=== PATIENT | male | born 1955 | race Caucasian/White ===

== ENCOUNTER → 2017-01-17 | Outpatient (CLI) | payer BC ==
--- NOTE | 2017-01-17 11:48 | MR ---
EXAMINATION TYPE: MR cervical spine wo con DATE OF EXAM: 01/17/2017 10:03 AM COMPARISON: NONE HISTORY: Neck pain TECHNIQUE: Multiplanar, multisequence images of the cervical spine were acquired. C2-C3: No evidence for degenerative disc disease. No disc bulge/herniation or protrusion. No Canal stenosis. Foramina are patent bilaterally. C3-C4: Broad-based posterior disc bulge, endplate disc complex causes anterior mass effect on the the gloria sac. Uncovertebral joint hypertrophy, facet arthropathy cause bilateral foraminal encroachment le ft greater than right. C4-C5: Posterior extension of endplate disc complex associated with posterior disc herniation in the central, right paracentral location contacts anterior cervical cord and results in mild to moderate c entral stenosis. Foraminal encroachment is present bilaterally left greater than right. C5-C6: Posterior endplate disc complex is broad-based and contacts the anterior cervical cord and res ults in some mild central canal stenosis. Bilateral foraminal encroachment is present due to uncovert ebral joint hypertrophy facet arthropathy change. C6-C7: Uncovertebral joint hypertrophy and facet arthropathy results in some mild foraminal encroachm ent. Broad-based posterior disc bulge causes anterior mass effect on the thecal sac and possibly exte nsion to contact the anterior cervical cord, no significant spinal stenosis. C7-T1: No evidence for degenerative disc disease. No disc bulge/herniation or protrusion. No Canal stenosis. Foramina are patent bilaterally. Cervical segments are intact. There is normal alignment. Cervical spinal cord is of normal signal. Multilevel spondylosis is present with associated loss of disc height and signal at the intervertebr al levels, endplate discogenic marrow signal change compatible with degenerative disc disease. Cranio vertebral junction relationships are within normal limits. Inflammatory changes noted incidentally i n the maxillary sinus. IMPRESSION: Degenerative disc disease, canal stenosis, multilevel foraminal encroachment. Additional findings abo ve.
== END | disposition home or self-care (01) ==
LOC: RADMRIMAIN 09:30
PROVIDERS: ATTEND Family Medicine
DX: M48.02 Spinal stenosis, cervical region (principal); M46.92 Unspecified inflammatory spondylopathy, cervical region; M50.221 Other cervical disc displacement at C4-C5 level; M47.892 Other spondylosis, cervical region; M50.30 Other cervical disc degeneration, unspecified cervical region
CPT/HCPCS: 72141

== ENCOUNTER → 2017-03-31 | Outpatient (CLI) | payer BC ==
[2017-03-31 19:32] LABS: ALT 34 U/L (21-72); AST 21 U/L (17-59); Alkaline Phosphatase 124 U/L (38-126); Anion Gap 12 mmol/L; Blood Urea Nitrogen 16 mg/dL (9-20); Calcium 9.7 mg/dL (8.4-10.2); Carbon Dioxide 23 mmol/L (22-30); Chloride 105 mmol/L (98-107); Cholesterol 220 mg/dL (<200); Glucose 90 mg/dL (74-99); HDL Cholesterol 44 mg/dL (40-60); Non-African American GFR(MDRD) >60 (>60 ml/min/1.73 sqM); Potassium 4.5 mmol/L (3.5-5.1); Sodium 140 mmol/L (137-145); Total Bilirubin 0.7 mg/dL (0.2-1.3); Total Protein 7.5 g/dL (6.3-8.2); Triglycerides 215 mg/dL (<150)
== END | disposition home or self-care (01) ==
LOC: MMGSC 10:56
PROVIDERS: ATTEND Family Medicine
DX: E78.5 Hyperlipidemia, unspecified (principal); Z12.5 Encounter for screening for malignant neoplasm of prostate
CPT/HCPCS: 80061; 80053; 36415; G0103

== ENCOUNTER → 2017-04-14 | Outpatient (CLI) | payer BC ==
--- NOTE | 2017-04-14 08:06 | CTL ---
EXAMINATION TYPE: CT Low Dose Lung DATE OF EXAM ORDERED: 04/14/2017 HISTORY: . Lung cancer screening CT DLP: 104.[address] CTDI: 2.7 mGy Automated exposure control for dose reduction was used. SCREENING VISIT: First COMPARISON: None TECHNIQUE: Low dose computed tomography scan was performed through the chest at 1 mm thick sections a nd reconstructed images in the coronal plane at [address] DIAGNOSTIC QUALITY: Satisfactory FINDINGS: LUNG NODULES: Present, detailed below: There is a nodule with a size of 3 mm. Nodule Size in Millimeters 3 mm was visualized with Nodule Ty pe: Solid that is Nodule state: Round in nature on image # CT Image slide number 65. LUNGS: COPD: Severity: Mild Fibrosis: Severity: None Lymph nodes: No pathologically enlarged nodes. Other findings: Apical scarring RIGHT PLEURAL SPACE: Effusion: None Calcification: None Thickening: None Pneumothorax: None LEFT PLEURAL SPACE: Effusion: None Calcification: None Thickening: None Pneumothorax: None HEART: Heart Size: Normal Coronary calcification: Mild Pericardial effusion: None OTHER FINDINGS: Upper abdomen: Calcification in the left adrenal gland likely relates to previous hemorrhage Bony thorax: Mild facet arthropathy in the lumbar spine Supraclavicular region: Unremarkable Other: None IMPRESSION: 1. Mild emphysematous change. 2. Solitary, 3 mm pulmonary nodule in the right. FOLLOW UP CT CHEST RECOMMENDATION: [address] LUNG RAD: 2
== END | disposition home or self-care (01) ==
LOC: RADCTMAIN 07:03
PROVIDERS: ATTEND Family Medicine
DX: Z12.2 Encounter for screening for malignant neoplasm of respiratory organs (principal); R91.1 Solitary pulmonary nodule; J43.9 Emphysema, unspecified; Z87.891 Personal history of nicotine dependence

== ENCOUNTER → 2017-10-05 | Outpatient (CLI) | payer BC ==
[2017-10-05 18:59] LABS: Basophils # (A) 0.1 k/uL (0-0.2); Basophils % (A) 1 %; CH 32.2; CHCM 32.5; Eosinophils # (A) 0.5 k/uL (0-0.7); Eosinophils % (A) 6 %; HCT 51.5 % (39.0-53.0); HDW 2.15; Luc % (Auto) 2; Lymphocytes # (A) 2.3 k/uL (1.0-4.8); Lymphocytes % (A) 27 %; MCHC 31.1 g/dL (31.0-37.0); MCV 99.6 fL (80.0-100.0); Mean Platelet Volume 8.9; Monocytes # (A) 0.6 k/uL (0-1.0); Monocytes % (A) 7 %; Neutrophils # (A) 4.8 k/uL (1.3-7.7); Neutrophils % (A) 58 %; RBC 5.17 m/uL (4.30-5.90); RDW 12.6 % (11.5-15.5); WBC 8.4 k/uL (3.8-10.6); WBC (Perox) 7.73
[2017-10-05 19:09] LABS: ALT 40 U/L (21-72); AST 23 U/L (17-59); Alkaline Phosphatase 104 U/L (38-126); Anion Gap 10 mmol/L; Blood Urea Nitrogen 16 mg/dL (9-20); Calcium 9.7 mg/dL (8.4-10.2); Carbon Dioxide 22 mmol/L (22-30); Chloride 108 mmol/L (98-107); Cholesterol 252 mg/dL (<200); Glucose 94 mg/dL (74-99); HDL Cholesterol 45 mg/dL (40-60); Non-African American GFR(MDRD) >60 (>60 ml/min/1.73 sqM); Potassium 4.4 mmol/L (3.5-5.1); Sodium 140 mmol/L (137-145); Total Bilirubin 0.4 mg/dL (0.2-1.3); Total Protein 7.6 g/dL (6.3-8.2)
== END | disposition home or self-care (01) ==
LOC: MMGSC 09:58
PROVIDERS: ATTEND Family Medicine
DX: E78.5 Hyperlipidemia, unspecified (principal); R53.83 Other fatigue
CPT/HCPCS: 36415; 80053; 80061; 82306; 82607; 84439; 84443; 85025

== ENCOUNTER → 2018-01-11 | Outpatient (CLI) | payer BC ==
[2018-01-11 19:35] LABS: ALT 44 U/L (21-72); AST 32 U/L (17-59); Albumin 4.6 g/dL (3.5-5.0); Alkaline Phosphatase 109 U/L (38-126); Anion Gap 13 mmol/L; Blood Urea Nitrogen 17 mg/dL (9-20); Calcium 9.9 mg/dL (8.4-10.2); Carbon Dioxide 26 mmol/L (22-30); Chloride 104 mmol/L (98-107); Cholesterol 215 mg/dL (<200); Glucose 97 mg/dL (74-99); HDL Cholesterol 44 mg/dL (40-60); LDL Cholesterol,Calculated 139 mg/dL (0-99); Potassium 4.6 mmol/L (3.5-5.1); Sodium 143 mmol/L (137-145); Total Bilirubin 0.7 mg/dL (0.2-1.3); Triglycerides 161 mg/dL (<150)
== END ==
LOC: MMGSC 10:16
PROVIDERS: ATTEND Family Medicine
DX: I10 Essential (primary) hypertension (principal); E55.9 Vitamin D deficiency, unspecified; E78.5 Hyperlipidemia, unspecified
CPT/HCPCS: 36415; 80053; 80061; 82306

== ENCOUNTER → 2018-01-30 | Outpatient (CLI) | payer BC | END | disposition home or self-care (01) | LOC: MMGSC 15:20 | PROVIDERS: ATTEND Family Medicine | DX: R82.99 Other abnormal findings in urine (principal) | CPT/HCPCS: 87086 ==

== ENCOUNTER → 2018-01-30 | Outpatient (CLI) | payer BC ==
[2018-01-30 20:43] LABS: ALT 36 U/L (21-72); AST 28 U/L (17-59); Albumin 4.6 g/dL (3.5-5.0); Alkaline Phosphatase 107 U/L (38-126); Anion Gap 12 mmol/L; Blood Urea Nitrogen 13 mg/dL (9-20); Calcium 10.2 mg/dL (8.4-10.2); Carbon Dioxide 29 mmol/L (22-30); Chloride 103 mmol/L (98-107); Glucose 90 mg/dL (74-99); Potassium 4.7 mmol/L (3.5-5.1); Sodium 144 mmol/L (137-145); Total Bilirubin 0.8 mg/dL (0.2-1.3); Total Protein 7.9 g/dL (6.3-8.2)
[2018-01-30 21:59] LABS: INR 1.1 (<1.2); Prothrombin Time 10.5 sec (9.0-12.0)
[2018-01-30 22:02] LABS: HCT 48.5 % (39.0-53.0); HGB 15.6 gm/dL (13.0-17.5); MCH 31.3 pg (25.0-35.0); MCHC 32.2 g/dL (31.0-37.0); MCV 97.1 fL (80.0-100.0); Mean Platelet Volume 8.5; Platelet Count 278 k/uL (150-450); RBC 4.99 m/uL (4.30-5.90); RDW 12.6 % (11.5-15.5); WBC 7.2 k/uL (3.8-10.6)
== END | disposition home or self-care (01) ==
LOC: MMGSC 15:10
PROVIDERS: ATTEND Orthopaedic Surgery Orthopaedic Surgery of the Spine
DX: M48.02 Spinal stenosis, cervical region (principal)
CPT/HCPCS: 36415; 80053; 85027; 85610; 85730

== ENCOUNTER → 2018-02-01 | Outpatient (CLI) | payer BC ==
--- NOTE | 2018-02-01 15:48 | CONS ---
CONSULTATION DATE OF SERVICE: 02/01/2018 The 62-year-old gentleman who has been evaluated in Sleep Center for possible obstructive sleep apnea-hypopnea syndrome. HISTORY OF PRESENT ILLNESS/SLEEP WAKE EVALUATION: Patient usual sleep schedule on working days is from 7:30 a.m. until 2:30 p.m., on weekends or days off he sleeps from around 8:30 p.m. until 5:00 a.m. No problems with falling asleep, although he has TV set in bedroom. He sleeps on the side position with loud snoring, awakenings from sleep with grinding teeth and nocturia. After sleep the patient wakes up tired. [place] Sleepiness Scale is 9. PAST MEDICAL HISTORY: Positive for hypertension, hyperlipidemia. PAST SURGICAL HISTORY: Left eye cataract surgery, fatty tumor removed from right upper part of the chest. SOCIAL HISTORY: Positive for smoking for about 50 pack years. The patient continued to smoke. Alcohol consumption occasional. REVIEW OF SYSTEMS: Sleepiness during the day. Patient takes naps at 2:00 p.m. FAMILY HISTORY: Hypertension, hyperlipidemia, snoring. PHYSICAL EXAM: GENERAL gentleman without distress. VITAL SIGNS BP 108/76, HR 82, RR 16, height 5 feet 8, weight 197, BMI 29.9, temperature 97.2, oxygen saturation room air 96%. HEENT PERRLA, EOMI, evaluation of oropharynx showed moderately low position of soft palate, wide pillars, short distance between soft palate and posterior pharyngeal wall. Neck 14-3/4 inches in circumference. NECK Supple, no JVD. Thyroid is not palpable. LUNGS Clear to percussion and to auscultation. Good air exchange. No wheezing or rhonchi. HEART S1, S2 regular. No murmurs, gallops, or rubs. ABDOMEN Soft and nontender. Bowel sounds are present. No organomegaly appreciated. EXTREMITIES No clubbing or cyanosis. 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 Cranial nerves 2 to 7 intact. There is no fasciculation or atrophy. noted. No focal deficits observed. IMPRESSION: 1. Snoring and awakenings from sleep with nocturia and grinding teeth, moderately low position of soft palate. The patient takes naps in the middle of the day, obstructive sleep apnea-hypopnea syndrome. 2. Overweight, borderline to obesity; body mass BMI 29.9. 3. Hypertension. 4. Hyperlipidemia. 5. Status post left eye cataract surgery. 6. Status post fatty tumor removed from the right upper part of the chest. 7. Smoking for about 50 pack years. Continues smoking. PLAN: 1. Home sleep apnea test for evaluation of patient breathing during the sleep. 2. Sleep hygiene with regular time in bed for at least 8 hours. 3. No driving if feeling any sleepiness. 4. CPAP treatment if sleep study positive for obstructive sleep apnea-hypopnea syndrome. Thank you very much for this consultation. Sincerely, Jarred Silva MD, PhD, FAASM Diplomat of [place] [employer] [place] [employer] Painting Technician of [facility] [place] MMODL / IJN: [id number] /
== END | disposition home or self-care (01) ==
LOC: SLEEP 14:06
PROVIDERS: ATTEND Internal Medicine
DX: G47.33 Obstructive sleep apnea (adult) (pediatric) (principal); E66.3 Overweight; Z68.29 Body mass index [BMI] 29.0-29.9, adult; I10 Essential (primary) hypertension; F17.200 Nicotine dependence, unspecified, uncomplicated; E78.5 Hyperlipidemia, unspecified; Z98.890 Other specified postprocedural states
CPT/HCPCS: 99211

== ENCOUNTER → 2018-06-27 | Outpatient (CLI) | payer BC ==
--- NOTE | 2018-06-27 09:31 | CTL ---
EXAMINATION TYPE: CT Low Dose Lung DATE OF EXAM ORDERED: 06/27/2018 COMPARISON: 04/14/2017 HISTORY: . Low Dose CT Lung Screening CT DLP: [address] CTDI: 2.07 mGy IV CONTRAST USED: None. SCREENING VISIT: First visit COMPARISON: None. TECHNIQUE: Low dose computed tomography scan was performed through the chest at 1 millimeter thick se ctions and reconstructed images in the coronal plane at [address] DIAGNOSTIC QUALITY: Satisfactory FINDINGS: LUNG NODULES: Stable sub-3 mm pulmonary nodule right upper lobe anteriorly image 67. Stable 2 mm pulm onary nodule left upper lobe at its periphery image 77. LUNGS: COPD: Severity: Mild Fibrosis: Severity:None Lymph nodes: None Other findings: None RIGHT PLEURAL SPACE: Effusion: None Calcification: None Thickening: None Pneumothorax: None LEFT PLEURAL SPACE: Effusion: None Calcification: None Thickening: None Pneumothorax: None HEART: Heart Size: Mildly enlarged Coronary calcification: Mild Pericardial effusion: None OTHER FINDINGS: Upper abdomen: No significant abnormality Bony thorax: Degenerative changes Supraclavicular region: No significant abnormalityOther: No significant abnormalityI IMPRESSION: 1. Emphysematous changes mild in degree. 2. Stable sub-3 mm pulmonary nodules. FOLLOW UP CT CHEST RECOMMENDATION: Follow-up screening in one year CT LUNG RAD: LUNG RAD CATEGORY 2 benign
== END | disposition home or self-care (01) ==
LOC: RADCTMAIN 08:22
PROVIDERS: ATTEND Family Medicine
DX: Z12.2 Encounter for screening for malignant neoplasm of respiratory organs (principal); J43.9 Emphysema, unspecified; R91.8 Other nonspecific abnormal finding of lung field; Z87.891 Personal history of nicotine dependence

== ENCOUNTER → 2018-06-28 | Outpatient (CLI) | payer BC ==
--- NOTE | 2018-06-28 17:28 | PN ---
PROGRESS NOTE DATE OF SERVICE: 06/28/2018 This patient is a 62-year-old gentleman who has been followed in the sleep center for treatment of obstructive sleep apnea-hypopnea syndrome. Recently the patient had a home sleep test which showed mild sleep apnea, and after that the patient was started on treatment with CPAP. The patient is able to use equipment without significant problems every night. He is using a full-face mask. No complaints about mask or machine. He feels slightly better with the machine, but not significantly. At the same time, his blood pressure during monitoring in his primary care physician's office improved during the last visit. At that time he was already on the machine. I checked his CPAP unit. On the automatic regimen, the pressure ranges between 5 and 20, average pressure 7.3 cm of water. Leak is 10 cm of water, which is acceptable. Apnea-hypopnea index is only 1.6, which is within normal range. Usage is 24 out of 30 nights for more than 4 hours. Average usage is 5.8 hours. MEDICATIONS: Medication for cholesterol; patient does not remember at the present moment. PHYSICAL EXAMINATION: GENERAL A pleasant gentleman in no distress. VITAL SIGNS: BP 133/76, HR 79, RR 18, weight 193.4, temperature 97.6, oxygen saturation at room air 95%. HEENT: PERRLA, EOMI. Evaluation of oropharynx showed tongue protrudes midline; low position of soft palate. NECK: Supple. No JVD. Thyroid is not palpable. LUNGS: Clear to percussion and to auscultation. Good air exchange. No wheezing or rhonchi. HEART: S1, S2 regular. No murmurs, gallops or rubs. ABDOMEN: Soft and nontender. Bowel sounds are present. No organomegaly appreciated. EXTREMITIES : No clubbing or cyanosis. SHOE PULLER: Awake, alert, and oriented X3. Cranial nerves 2 to 7 intact. There is no fasciculation or atrophy. noted. No focal deficits observed. IMPRESSION: 1. Obstructive sleep apnea-hypopnea syndrome, under full control with CPAP. Patient demonstrated great compliance with treatment, benefitting from treatment. 2. Hypertension. 3. Hyperlipidemia. PLAN: 1. Continue treatment with automatic PAP with the same regimen. 2. Watching weight. 3. Sleep hygiene with regular time in bed for at least 8 hours. 4. No driving if feeling any sleepiness. Thank you very much for allowing me to participate in the management of your patient. Sincerely, Jarred Silva MD, PhD, FAASM Diplomat of [place] [employer] [employer] Nuclear Plant Technical Advisor of [facility] [place] MICA / ADARSH: [id number] /
== END ==
LOC: SLEEP 16:20
PROVIDERS: ATTEND Internal Medicine
DX: G47.33 Obstructive sleep apnea (adult) (pediatric) (principal); I10 Essential (primary) hypertension; E78.5 Hyperlipidemia, unspecified; Z99.89 Dependence on other enabling machines and devices

== ENCOUNTER → 2019-07-03 | Outpatient (CLI) | payer BC ==
--- NOTE | 2019-07-03 09:01 | CTL ---
EXAMINATION TYPE: CT Low Dose Lung DATE OF EXAM ORDERED: 07/03/2019 HISTORY: 63-year-old male Personal history of tobacco use. Lung cancer screening CT DLP: [address] CTDI: 2.14 mGy Automated exposure control for dose reduction was used. SCREENING VISIT: One-year follow-up COMPARISON: 06/27/2018 and 04/14/2017. TECHNIQUE: Low dose computed tomography scan was performed through the chest at 1 mm thick sections a nd reconstructed images in the coronal/sagittal plane at 1 mm thick sections. Additional coronal MIP reconstruction performed. CT DIAGNOSTIC QUALITY: Satisfactory FINDINGS: Heart normal size without pericardial effusion. Coronary vessel calcifications are present. Ectatic ascending aorta at 3.7 cm. Ectatic upper descending thoracic aorta 3.0 cm. Mild atherosclerot ic arch calcifications with conventional arch vessel branching anatomy. No thoracic lymphadenopathy by CT size criteria. Scattered mild emphysematous change in the lungs. Moderate diffuse bronchial wall thickening is noted . 3 mm peripheral right upper lobe pulmonary nodule axial image 82 is less defined. A 5 mm superior segment right lower lobe pulmonary nodule is seen in retrospect, axial image 178, and is stable dating back to 04/14/2017. A couple peripherally oriented 2 mm pulmonary nodules left upper lobe, axial image 68 and 71 are unch anged. No suspicious pulmonary nodule or mass. Strandy atelectasis in the lower lungs. No consolidation or pleural effusion. Visualized upper abdomen shows no gross abnormal body by noncontrast, low-dose technique. Bones: Partially visualized ACDF hardware. Scattered mild degenerative disc disease. Slight levoconve x curvature lower thoracic spine. IMPRESSION: 1. Lung RADS 2 - benign; stable 5 mm and smaller pulmonary nodules. 2. COPD with mild emphysema. There may be a prominent component of chronic bronchitis. RECOMMENDATION: 1. Continue annual low-dose lung cancer screening CT. 2. Smoking cessation. FOLLOW UP CT CHEST RECOMMENDATION: [address] LUNG RAD: Lung-Rad 2 Benign Appearance or Behavior
== END | disposition home or self-care (01) ==
LOC: RADCTMAIN 07:52
PROVIDERS: ATTEND Family Medicine
DX: Z12.2 Encounter for screening for malignant neoplasm of respiratory organs (principal); J43.9 Emphysema, unspecified; F17.210 Nicotine dependence, cigarettes, uncomplicated

== ENCOUNTER 2020-01-09 09:28 | Day surgery (SDC) | payer BC ==
[2020-01-07 09:11] VITALS: BMI 27.2
[~2020-01-09 09:28] MED LIST: LACTATED RINGERS 1,000 ML IV SCH; LIDOCAINE 1% (10MG/ML) FOR IV START INTRADERMA PRN
[2020-01-09 09:48] VITALS: TEMP 97.9
[2020-01-09] MEDS ORDERED: PROPOFOL 10 MG/ML 20 ML VIAL IV ONE (10:19)
[2020-01-09] MEDS ORDERED: LIDOCAINE 1% INJ 10MG/ML (20 ML MDV) ONE (10:19)
--- NOTE | 2020-01-09 10:58 | P.PCN ---
Date of Procedure: 01/09/20 Description of Procedure: BRIEF HISTORY: Patient is a 64-year-old pleasant male scheduled for an elective colonoscopy as a part of evaluation of change in bowel habits. Patient reports constipation which he uses [id number] laxatives. He will also have left lower quadrant abdominal pain which she describes as achy in nature. PROCEDURE PERFORMED: Colonoscopy with polypectomy. PREOPERATIVE DIAGNOSIS: Change in bowel habits, last colonoscopy 10 years ago per his recollection. ESTIMATED BLOOD LOSS: Minimal. IV sedation per Anesthesia. PROCEDURE: After informed consent was obtained, the patient, was brought into the endoscopy unit. IV sedation was administered by Anesthesia under continuous monitoring. Digital rectal examination was normal. Initially the Olympus CF-190 flexible video colonoscope was then inserted in the rectum, gradually advanced into the cecum without any difficulty. Careful examination was performed as the scope was gradually being withdrawn. Ileocecal valve and the appendiceal orifice were visualized and appeared normal. Diminutive polyps measuring 1-2 mm with 1 removed from the cecum, 1 removed from the splenic flexure, through removed from the descending colon and one removed from the sigmoid colon. Flat 7 mm transverse colon polyp removed with cold snare polypectomy. Flat 4 mm sigmoid colon polyp removed with cold snare polypectomy. Prep was excellent. Mucosa of the cecum, ascending colon, transverse colon, descending colon, sigmoid colon, and rectum appeared normal. Retroflexion was performed in the rectum and no lesions were seen. The patient tolerated the procedure well. IMPRESSION: 6 diminutive polyps removed with cold forcep polypectomy from the cecum, splenic flexure, descending colon and sigmoid. Polyps removed from the transverse colon and sigmoid colon with cold snare polypectomy. RECOMMENDATIONS: Findings of this examination were discussed with the patient and his . Okay to resume diet. Okay to resume medications. Await pathology from polypectomies. Would recommend repeat colonoscopy in 3 years pending pathology from polypectomy.
[2020-01-09 11:30] VITALS: BP 94/56; PULSE 67; RESP 16
== END 2020-01-09 11:37 | disposition home or self-care (01) ==
LOC: ORWHC2ENDO 09:28
PROVIDERS: ATTEND Internal Medicine
DX: K63.89 Other specified diseases of intestine (principal); D12.0 Benign neoplasm of cecum; D12.4 Benign neoplasm of descending colon; D12.5 Benign neoplasm of sigmoid colon; K63.5 Polyp of colon; Z72.0 Tobacco use; Z88.0 Allergy status to penicillin; Z79.899 Other long term (current) drug therapy
CPT/HCPCS: 88305; 45380; 45385; J2001; J2704

== ENCOUNTER → 2020-07-17 | Outpatient (CLI) | payer BC ==
--- NOTE | 2020-07-20 09:02 | CTL ---
EXAMINATION TYPE: CT Low Dose Lung DATE OF EXAM ORDERED: 07/17/2020 COMPARISON: 07/03/2019 HISTORY: . Low Dose CT Lung Screening CT DLP: 134.[address] CTDI: 3.3 mGy IV CONTRAST USED: None. SCREENING VISIT: First visit COMPARISON: July 03, 2019 TECHNIQUE: Low dose computed tomography scan was performed through the chest at 1 millimeter thick se ctions and reconstructed images in the coronal plane at [address] DIAGNOSTIC QUALITY: Satisfactory FINDINGS: LUNG NODULES: 3 mm peripheral right upper lobe pulmonary nodule is stable. A 5 mm superior segment right lower lobe pulmonary nodule is seen again unchanged dating back to 2017. A couple peripherally oriented 2 mm pu lmonary nodules left upper lobe. LUNGS: COPD: Severity: Mild Fibrosis: Severity:None Lymph nodes: None Other findings: None RIGHT PLEURAL SPACE: Effusion: None Calcification: None Thickening: None Pneumothorax: None LEFT PLEURAL SPACE: Effusion: None Calcification: None Thickening: None Pneumothorax: None HEART: Heart Size: Mildly enlarged Coronary calcification: Mild Pericardial effusion: None OTHER FINDINGS: Upper abdomen: No significant abnormality Bony thorax: Degenerative changes Supraclavicular region: No significant abnormalityOther: No significant abnormalityI IMPRESSION: Benign FOLLOW UP CT CHEST RECOMMENDATION: Follow-up screening in one year. Smoking cessation advised. CT LUNG RAD: LUNG RAD CATEGORY 2 benign
== END | disposition home or self-care (01) ==
LOC: RADCTMAIN 16:23
PROVIDERS: ATTEND Family Medicine
DX: Z12.2 Encounter for screening for malignant neoplasm of respiratory organs (principal); Z87.891 Personal history of nicotine dependence

== ENCOUNTER → 2021-09-08 | Outpatient (CLI) | payer BC ==
--- NOTE | 2021-09-08 13:43 | CTL ---
EXAMINATION TYPE: CT Low Dose Lung DATE OF EXAM ORDERED: 09/08/2021 HISTORY: Tobacco use. Lung cancer screening CT DLP: 126.[address] CTDI: 3.30 mGy Automated exposure control for dose reduction was used. SCREENING VISIT: Subsequent COMPARISON: 07/17/2020 TECHNIQUE: Low dose computed tomography scan was performed through the chest at 1 mm thick sections a nd reconstructed images in the coronal plane at [address] DIAGNOSTIC QUALITY: Satisfactory FINDINGS: LUNG NODULES: Present, detailed below: 1. There is a 0.3 cm low density area within the periphery of the lateral right upper lung field. Ser ies 4 image 67. This may be new. 2. There is a 1.6 cm density along the anterior right costophrenic angle. Series 4 image 212. This ap pears to have fat density on mediastinal windows and is likely volume averaging. LUNGS: COPD: Severity: Normal Fibrosis: Severity: None Lymph nodes: None Other findings: None RIGHT PLEURAL SPACE: Effusion: None Calcification: None Thickening: None Pneumothorax: None LEFT PLEURAL SPACE: Effusion: None Calcification: None Thickening: None Pneumothorax: None HEART: Heart Size: Normal Coronary calcification: Moderate Pericardial effusion: None OTHER FINDINGS: Upper abdomen: Normal Bony thorax: Normal Supraclavicular region: Normal Other: Ascending thoracic aorta at the level the main pulmonary artery measures 3.8 cm. The main pul monary artery at the bifurcation measures 2.6 cm. IMPRESSION: Benign-appearing findings FOLLOW UP CT CHEST RECOMMENDATION: Follow-up low-dose CT chest [address] LUNG RAD: 2
== END | disposition home or self-care (01) ==
LOC: RADCTMAIN 12:04
PROVIDERS: ATTEND Family Medicine
DX: Z12.2 Encounter for screening for malignant neoplasm of respiratory organs (principal); Z72.0 Tobacco use
CPT/HCPCS: 71271

== ENCOUNTER → 2021-09-14 | Outpatient (CLI) | payer BC ==
--- NOTE | 2021-09-14 08:56 | US ---
EXAMINATION TYPE: US abdomen complete DATE OF EXAM: 09/14/2021 COMPARISON: CT 2013 CLINICAL HISTORY: R10.32 left lower quad pain. EXAM MEASUREMENTS: Liver Length: 17.0 cm Gallbladder Wall: 0.2 cm CBD: 0.4 cm Spleen: 11.2 cm Right Kidney: 12.8x6.8x6.7 cm Left Kidney: 11.3x6.1x6.1 cm Pancreas: Obscured by bowel gas Liver: Increased attenuation, decreased visualization of vessels suggestive of fatty infiltrate Gallbladder: Large mobile gallstone measuring 1.3cm. Adenomyomatosis Evidence for sonographic Powell's sign: No CBD: wnl Spleen: wnl Right Kidney: wnl Left Kidney: wnl Upper IVC: wnl Abd Aorta: DIST AAA measuring 3.3x3.3cm IVC is seen near the hepatic dome. There is now AAA up to 3.3 cm distally new from 2013 CT. Visualize d liver is heterogeneously hyperechoic suggesting diffuse fatty infiltration. Evaluation for focal ma sses suboptimal due to the heterogeneity. No surrounding ascites. Gallbladder seen with single 1.3 cm mobile shadowing gallstone. Gallbladder wall shows hyperechoic material with ringdown artifact consi stent with cholesterolosis. No surrounding fluid or wall thickening. Common bile duct is unremarkabl e. The visualized portions of the pancreas are homogenous. The spleen is unremarkable. Kidneys are symmetric and free of hydronephrosis. No renal lesions are seen. IMPRESSION: Source of left lower quadrant pain not identified. New 3.3 cm distal AAA. Diffuse fatty i nfiltration of liver redemonstrated. Gallstone without secondary ultrasound evidence for acute cholec ystitis.
== END | disposition home or self-care (01) ==
LOC: RADUSWWP 08:15
PROVIDERS: ATTEND Family Medicine
DX: R10.32 Left lower quadrant pain (principal); I71.4 Abdominal aortic aneurysm, without rupture; K76.0 Fatty (change of) liver, not elsewhere classified; K80.20 Calculus of gallbladder without cholecystitis without obstruction
CPT/HCPCS: 76700

== ENCOUNTER → 2021-11-01 | Outpatient (CLI) | payer BC ==
[2021-11-01 15:42] LABS: HCT 49.3 % (39.6-50.0); HGB 15.5 g/dL (13.0-17.0); MCH 30.3 pg (27.0-32.0); MCHC 31.4 g/dL (32.0-37.0); MCV 96.5 fL (80.0-97.0); Mean Platelet Volume 10.4 fL (9.5-12.2); Platelet Count 201 X 10*3/uL (140-440); RBC 5.11 X 10*6/uL (4.40-5.60); RDW 12.3 % (11.5-14.5); WBC 5.71 X 10*3/uL (4.50-10.00)
[2021-11-01 16:35] LABS: African American GFR (CKD) 105.3 (60.0-200.0); Albumin 4.5 g/dL (3.8-4.9); Albumin/Globulin Ratio 1.57 (1.60-3.17); Anion Gap 13.9 mmol/L (10.00-18.00); BUN/Creat Ratio 17.81 Ratio (12.00-20.00); Blood Urea Nitrogen 15.1 mg/dL (9.0-27.0); Calcium 9.1 mg/dL (8.7-10.3); Carbon Dioxide 24.2 mmol/L (20.0-27.5); Globulin 2.9 g/dL (1.6-3.3); Non-African American GFR(CKD) 90.9 (60.0-200.0); Potassium 4.5 mmol/L (3.5-5.5); Total Bilirubin 0.4 mg/dL (0.30-1.20); Total Protein 7.4 g/dL (6.2-8.2)
== END | disposition home or self-care (01) ==
LOC: LABWHC1 08:12
PROVIDERS: ATTEND Surgery Plastic and Reconstructive Surgery
DX: I11.0 Hypertensive heart disease with heart failure (principal); K80.10 Calculus of gallbladder with chronic cholecystitis without obstruction; I50.9 Heart failure, unspecified
CPT/HCPCS: 36415; 80053; 85027; 93005

== ENCOUNTER → 2021-11-29 | Outpatient (CLI) | payer BC | END | disposition home or self-care (01) | LOC: LABPAT 07:55 | PROVIDERS: ATTEND Surgery Plastic and Reconstructive Surgery | DX: Z20.822 Contact with and (suspected) exposure to COVID-19 (principal); K80.10 Calculus of gallbladder with chronic cholecystitis without obstruction | CPT/HCPCS: U0003; C9803 ==

== ENCOUNTER 2021-12-02 08:47 | Day surgery (SDC) | payer BC ==
[2021-11-26 11:45] VITALS: BMI 34.0
--- NOTE | 2021-12-02 07:46 | P.GSHP ---
History of Present Illness H&P Date: 12/02/21 CHIEF COMPLAINT: Cholecystitis with symptomatic gallstones HISTORY OF PRESENT ILLNESS: The patient is a 66-year-old male who presents with history of epigastric including right upper quadrant abdominal pain and symptomatic gallstones. He underwent diagnostic studies for the gallbladder. Separately his clinical picture was consistent with cholecystitis. Now he presents for surgical intervention. PAST MEDICAL HISTORY: Please see list PAST SURGICAL HISTORY: Please see list MEDICATIONS: Please see list ALLERGIES: Denies. SOCIAL HISTORY: No illicit drug use or recent tobacco use FAMILY HISTORY: Pertinent for gallbladder disease REVIEW OF ORGAN SYSTEMS: CONSTITUTIONAL: No reports of fevers or chills. HEENT: Denies any troubles with the vision or hearing. ENDOCRINE: No reports of hypothyroidism. No diabetes. RESPIRATORY: No recent pneumonias. Has asthma. Has COPD. CARDIOVASCULAR: Denies chest pain or palpitations. Has hypertensive heart disease. Has abdominal aortic aneurysm. GI: No blood in stools or constipation. MUSCULOSKELETAL: Has occasional joint pain including back pain. NEURO: No seizure disorders or headaches. No recent stroke. PSYCH: No depression or suicidal ideation. HEMATOLOGIC: No personal or family history of DVTs or pulmonary emboli. PHYSICAL EXAM: VITAL SIGNS: Afebrile vital signs stable GENERAL: Well-developed pleasant male in no acute distress. HEENT: No scleral icterus. Extraocular movements grossly intact. Moist buccal mucosa. NECK: Supple without lymphadenopathy. CHEST: Unlabored respirations. Equal bilateral excursions. CARDIOVASCULAR: Regular rate regular rhythm rhythm. Distal 2+ pulses. ABDOMEN: Soft, nondistended. Tender along the epigastrium and right upper quadrant. MUSCULOSKELETAL: No clubbing, cyanosis, or edema. NEURO : No focal or lateralizing signs. Cranial nerves II-12 within normal limits. PSYCH: Alert and oriented to person, place and time. SKIN: Well perfused. Good skin turgor. LABS: Reviewed with normal LFTs and CBC. EKG: Reviewed. Normal sinus rhythm. ASSESSMENT: 1. Epigastric and right upper quadrant abdominal pain 2. Chronic cholecystitis with symptomatic gallstones. 3. Abdominal aortic aneurysm PLAN: 1. Will need a robotic cholecystectomy possible open. Benefits and risks were described. 2. Heparin for DVT prophylaxis 5000 units. 3. Antibiotic prophylaxis. 4. Patient's elevated risk due to abdominal aneurysm and COPD. Past Medical History Past Medical History: COPD, Hyperlipidemia, Hypertension Additional Past Medical History / Comment(s): abdominal pain and nausea, abdominal aortic aneurysm-Dr Hoyt. History of Any Multi-Drug Resistant Organisms: None Reported Additional Past Surgical History / Comment(s): Neck sx Past Anesthesia/Blood Transfusion Reactions: No Reported Reaction Additional Past Anesthesia/Blood Transfusion Reaction / Comment(s): no hx blood transfusion Smoking Status: Former smoker - Past Family History Mother Family Medical History: No Reported History Medications and Allergies Home Medications Medication Instructions Recorded Confirmed Type Ipratropium/Albuterol Sulfate 1 puff INHALATION TID PRN 01/07/20 11/26/21 History [Combivent Respimat Inhaler] Lovastatin [Mevacor] 40 mg PO HS 01/07/20 11/26/21 History lisinopriL [Zestril] 20 mg PO QAM 01/07/20 11/26/21 History Aspirin 81 mg PO DAILY 11/26/21 11/26/21 History Allergies Allergy/AdvReac Type Severity Reaction Status Date / Time amoxicillin [From Augmentin] AdvReac Diarrhea Verified 11/26/21 11:35 clavulanic acid AdvReac Diarrhea Verified 11/26/21 11:35 [From Augmentin]
[~2021-12-02 08:47] MED LIST changes: +ACETAMINOPHEN TAB 500 MG TAB PO STA; +DEXAMETHASONE SOD PHOSPHATE 4 MG/ML 1 ML VIAL IV ONE; +GABAPENTIN 300 MG CAP PO STA; +HEPARIN SODIUM,PORCINE/PF 5,000 UNIT/0.5 ML SYRINGE SQ PRN; +HYDROmorphone 0.5 MG/0.5 ML SYRINGE IVP PRN; -LACTATED RINGERS 1,000 ML IV SCH; -LIDOCAINE 1% (10MG/ML) FOR IV START INTRADERMA PRN; +MIDAZOLAM 2 MG/2 ML VIAL IV PRN; +ONDANSETRON 4 MG/2 ML VIAL IVP ONE; +TAMSULOSIN 0.4 MG CAP.ER.24H PO STA
[2021-12-02] MEDS ORDERED: MELOXICAM 7.5 MG TAB PO SCH (09:00)
[2021-12-02] MEDS ORDERED: BUPIVACAIN-EPI 0.25%-1:200,000 30 ML VIAL SQ ONE ×2 (09:27→10:23)
[2021-12-02] MEDS: LACTATED RINGERS 1,000 ML IV SCH ×2 (09:41→10:04)
[2021-12-02] MEDS ORDERED: NEOSTIGMINE 1 MG/ML 10 ML VIAL ONE (10:01)
[2021-12-02] MEDS ORDERED: INDOCYANINE GREEN 25 MG VIAL IV ONE (10:01)
[2021-12-02] MEDS ORDERED: ROCURONIUM 10 MG/ML (5 ML VIAL) IV ONE (10:01)
[2021-12-02] MEDS ORDERED: GLYCOPYRROLATE 0.2 MG/ML 2 ML VIAL ONE (10:01)
[2021-12-02] MEDS ORDERED: MIDAZOLAM 2 MG/2 ML VIAL ONE (10:01)
[2021-12-02] MEDS ORDERED: PROPOFOL 10 MG/ML 20 ML VIAL IV ONE (10:01)
[2021-12-02] MEDS ORDERED: fentaNYL (PF) 50 MCG/ML 2 ML AMP ONE (10:01)
[2021-12-02] MEDS ORDERED: PHENYLEPHRINE-0.9% NACL SYG 1,000 MCG/10 ML SYRINGE ONE (10:01)
[2021-12-02] MEDS ORDERED: LIDOCAINE 1% INJ 10MG/ML (20 ML MDV) ONE (10:01)
[2021-12-02] MEDS ORDERED: SUCCINYLCHOLINE CHLORIDE 100 MG/5 ML SYR IV ONE (10:01)
[2021-12-02] MEDS ORDERED: ePHEDrine 50 MG/ML 1 ML AMP ONE (10:01)
[2021-12-02] MEDS ORDERED: HYDROmorphone (PF) 1 MG/ML ONE (10:01)
[2021-12-02] MEDS ORDERED: KETOROLAC 30 MG/ML 1 ML VIAL IVP PRN (11:26)
[2021-12-02] MEDS ORDERED: oxyCODONE-APAP 7.5-325MG 1 EACH TAB PO PRN (11:27)
[2021-12-02] MEDS ORDERED: SIMETHICONE 80 MG CHEWABLE PO SCH (11:30)
--- NOTE | 2021-12-02 11:30 | P.OP ---
Date of Procedure: 12/02/21 Description of Procedure: SURGEON: ROSI GUALLPA MD PREOPERATIVE DIAGNOSES: 1. Symptomatic gallstones 2. Right upper quadrant abdominal pain 3. Hypertensive heart disease 4. Chronic obstructive pulmonary disease 5. Abdominal aortic aneurysm 6. Hyperlipidemia 7. Obesity due to excess calories, BMI 33.8 POSTOPERATIVE DIAGNOSES: 1. Symptomatic gallstones 2. Right upper quadrant abdominal pain 3. Hypertensive heart disease 4. Chronic obstructive pulmonary disease 5. Abdominal aortic aneurysm 6. Hyperlipidemia 7. Obesity due to excess calories, BMI 33.8 OPERATION: Robotic-assisted da Radha Xi laparoscopic cholecystectomy, multiport with FIREFLY ESTIMATED BLOOD LOSS: 5 mL. SPECIMENS REMOVED: Gallbladder. COMPLICATIONS: None. OPERATIVE FINDINGS: 1. Moderate intra-abdominal fat INDICATIONS: The patient is a 66-year-old male who presents with symptomatic gallstones. Robotic assisted laparoscopic approach was described. Benefits and risks of the procedure including but not limited to bleeding, infection, injury to the biliary tree was described. Informed consent was obtained. DESCRIPTION OF PROCEDURE: Patient was brought to the operating room, placed in supine position. After general induction, the abdomen had been prepped and draped in standard sterile fashion. The robotic da Radha XI system was primed. After a timeout protocol was performed, the patient had been prepped and draped in standard sterile fashion. The patient was injected with indocyanine green. A 5 mm 0 degrees laparoscopic trocar entry was performed along the left upper quadrant. The abdomen insufflated to 15 mmHg pressure which was tolerated well. Diagnostic laparoscopy demonstrated no injury to bowel viscera or mesentery. The liver surface was unremarkable. Next, two 8 mm robotic ports were placed along the right upper abdomen. The camera 8-mm port was maintained along the epigastrium. Another 8 mm port was placed along the left upper abdominal wall after exchanging the 5 mm port. Please note that the ports were placed at least 10 to 15 cm away from the target anatomy of the gallbladder. The robot was docked along the left lateral abdomen. The patient was repositioned in reverse Trendelenburg position. Using a grasper for arm 3, a grasper for arm 4, including hook cautery for arm 1, the robotic system was docked and primed as described. Instruments were interchanged by the diet assistant including hook cautery, Bovie cautery and clip appliers. I had sat at the console. Next attention was brought to the infundibulum and cystic structures. The infundibulum and cystic duct were dissected free from surrounding tissues. The cystic duct was isolated. FIREFLY was used to identify the cystic artery and cystic structures. A critical view of safety was obtained. Large PLASTIC clips were used throughout the entire case. Using a clip driller and reamer, 2 clips were placed at the junction of the infundibulum and cystic duct. The cystic duct was divided proximal to the clips. Next, the cystic artery was similarly clipped and cauterized. Electro-Bovie cautery was used to remove the gallbladder from the hepatic fossa. Hemostasis was checked and found to be adequate. The robot was undocked. I re-scrubbed into the case. Using a 10 mm Endo Catch bag via the left upper quadrant incision, the specimen was removed from the abdominal cavity. All pneumoperitoneum instruments were evacuated from the abdominal cavity. The incisions were reapproximated using 4-0 Monocryl in an interrupted subcuticular fashion. Fascial defects were less than 8 mm in size. Please note along the trocar sites, local anesthetic was placed as a field block prior to insertion of all instruments. Liquid glue was applied to the skin. At the end of the procedure needle, sponge, and instrument count had been verified correct by the assembler surgical garment. The patient was transferred to postanesthesia care unit in stable condition. Intraoperative films were shared with the patient's family. Plan - Discharge Summary Discharge Rx Participant: No New Discharge Prescriptions: New Tamsulosin [Flomax] 0.4 mg PO DAILY #5 cap Ibuprofen [Motrin] 600 mg PO Q8HR PRN #30 tab PRN Reason: Pain Acetaminophen Tab [Tylenol Tab] 1,000 mg PO Q6HR PRN #30 tablet PRN Reason: Pain Continue Ipratropium/Albuterol Sulfate [Combivent Respimat Inhaler] 1 puff INHALATION TID PRN PRN Reason: sob Lovastatin [Mevacor] 40 mg PO HS lisinopriL [Zestril] 20 mg PO QAM Aspirin 81 mg PO DAILY Discharge Medication List Ipratropium/Albuterol Sulfate [Combivent Respimat Inhaler] 1 puff INHALATION TID PRN 01/07/20 [History] Lovastatin [Mevacor] 40 mg PO HS 01/07/20 [History] lisinopriL [Zestril] 20 mg PO QAM 01/07/20 [History] Aspirin 81 mg PO DAILY 11/26/21 [History] Acetaminophen Tab [Tylenol Tab] 1,000 mg PO Q6HR PRN #30 tablet 12/02/21 [Rx] Ibuprofen [Motrin] 600 mg PO Q8HR PRN #30 tab 12/02/21 [Rx] Tamsulosin [Flomax] 0.4 mg PO DAILY #5 cap 12/02/21 [Rx] Follow up Appointment(s)/Referral(s): Rosi Guallpa MD [STAFF PHYSICIAN] - 12/14/21 Patient Instructions/Handouts: *[facility] - Managing Your Pain After Surgery Without Opioids, Low Fat Diet (DC), Laparoscopic Cholecystectomy (DC) Activity/Diet/Wound Care/Special Instructions: Recommend low-fat diet for the next 2 days. No lifting over 10 pounds in 2 weeks until Dec 16. May shower. No bath tub soaks for two weeks until Dec 16 Diet as tolerated. Use Tylenol, simethicone and ibuprofen or Aleve scheduled for the next 24-48 hours for best pain relief. Use ice along incisions for today to prevent swelling. Discharge Disposition: HOME SELF-CARE
[2021-12-02 11:33] VITALS: TEMP 97.1
[2021-12-02 12:03] VITALS: RESP 16
[2021-12-02 13:39] VITALS: BP 124/63; PULSE 66
[2021-12-03] MEDS ORDERED: ASPIRIN 81 MG PO SCH (09:00)
== END 2021-12-02 13:58 | disposition home or self-care (01) ==
LOC: OR 08:47
PROVIDERS: ATTEND Surgery Plastic and Reconstructive Surgery
DX: K80.10 Calculus of gallbladder with chronic cholecystitis without obstruction (principal); I11.9 Hypertensive heart disease without heart failure; J44.9 Chronic obstructive pulmonary disease, unspecified; I71.4 Abdominal aortic aneurysm, without rupture; E78.5 Hyperlipidemia, unspecified; G47.33 Obstructive sleep apnea (adult) (pediatric); E66.9 Obesity, unspecified; Z68.33 Body mass index [BMI] 33.0-33.9, adult; Z87.891 Personal history of nicotine dependence; Z79.82 Long term (current) use of aspirin; Z79.899 Other long term (current) drug therapy; Z88.0 Allergy status to penicillin
CPT/HCPCS: 88304; 47563; J2250; J1100; J2710; J0690; J2405; J2001; J3010; J1170; J2370; J0330; J2704; J1644

== ENCOUNTER → 2021-12-30 | Outpatient (CLI) | payer BC ==
--- NOTE | 2021-12-30 14:57 | ECHOS ---
STRESS ECHOCARDIOGRAM INDICATIONS: Dyspnea. BASELINE HEART RATE: 81 BASELINE BLOOD PRESSURE: 128/96 MAXIMUM HEART RATE: 135 MAXIMUM BLOOD PRESSURE: 226/88 85% MPHR: 131 100% MPHR: 154 METS: 8.3 MAXIMUM STAGE REACHED: 2 TOTAL EXERCISE TIME: 6:52 RESULTS: Baseline rhythm is sinus mechanism, rate of 81, normal axis and intervals. Poor R wave progression. Baseline blood pressure 128/96 mmHg. Patient exercised on Bijan protocol for 6 minutes 52 seconds reaching peak rate of 135 beats per minute, which is equal to 88% maximum predicted heart rate. Peak blood pressure 226/88 mmHg. Test was terminated secondary to fatigue. There was no chest pain. Electrocardiographic monitoring revealed occasional PVCs. There was no evidence of diagnostic ischemic ST deviation. FINDINGS: Baseline echocardiogram revealed normal wall motion. At peak exercise, there was normal wall motion augmentation with no hypokinesis or dyskinesis. CONCLUSION: 1. Good exercise tolerance with occasional PVCs and no evidence of electrocardiographic ischemic ST-segment changes. 2. Normal stress echocardiogram with no evidence of stress-induced ischemia. MMODL / IJN: [id number] /
== END | disposition home or self-care (01) ==
LOC: RADNMMAIN 09:53
PROVIDERS: ATTEND Family Medicine
DX: I49.3 Ventricular premature depolarization (principal)
CPT/HCPCS: 93351

== ENCOUNTER → 2022-07-26 | Outpatient (CLI) | payer BC ==
[2022-07-26 11:00] LABS: African American GFR (CKD) >90 (>60 ml/min/1.73 sqM); Blood Urea Nitrogen 17 mg/dL (9-20); Non-African American GFR(CKD) >90 (>60 ml/min/1.73 sqM)
--- NOTE | 2022-07-26 11:40 | CT ---
EXAMINATION TYPE: CT soft tissue neck w con CT DLP: 715.1 mGycm, Automated exposure control for dose reduction was used. DATE OF EXAM: 07/26/2022 11:19 AM COMPARISON: None. CLINICAL INDICATION:Male, 66 years old with history of L vocal cord paralysis; TECHNIQUE: Standard enhanced CT of the neck following intravenous administration of 70 cc of Isovue 3 00. Axial sections with coronal and sagittal reformats were obtained. FINDINGS: Dental amalgam increased streak artifact which limits evaluation. Brain: Visualized portions are grossly unremarkable. Orbits: Bilateral aphakia. Sinuses: Mild mucosal thickening of the bilateral maxillary sinuses left greater than right and left ethmoid sinus. Spaces of the neck: The oropharynx, oral cavity, parapharyngeal and retropharyngeal spaces are clear and symmetric. The nasopharynx is unremarkable. The larynx, hypopharynx, and supraglottic area are cl ear and symmetric. Musculoskeletal: No acute osseous pathology. No aggressive osseous lesions. Postsurgical changes with anterior cervical fusion involving C4-C6 with disc spacers. Lymph nodes: A few nonenlarged lymph nodes are seen along both anterior chains of the neck. Vascular structures: Minimal atherosclerotic calcifications of the internal carotid arteries. Thoracic Inlet/airway: Airway is patent. Mild centrilobular emphysematous changes. Soft tissues/Thyroid: Thyroid and remainder of the soft tissues are unremarkable. Other: none. IMPRESSION 1. No definite evidence for mass or significant abnormality. 2. COPD changes.
== END | disposition home or self-care (01) ==
LOC: RADCTMAIN 10:08
PROVIDERS: ATTEND Otolaryngology
DX: J44.9 Chronic obstructive pulmonary disease, unspecified (principal)
CPT/HCPCS: 82565; 84520; 70491; 36415; Q9967

== ENCOUNTER 2022-08-17 09:40 | Day surgery (SDC) | payer BC ==
[2022-08-16 09:49] VITALS: BMI 34.0
[~2022-08-17 09:40] MED LIST changes: -ACETAMINOPHEN TAB 500 MG TAB PO STA; +DEXAMETHASONE SOD PHOSPHATE 4 MG/ML 1 ML VIAL IV PRN; +FAMOTIDINE 20 MG/2 ML VIAL IV PRN; -GABAPENTIN 300 MG CAP PO STA; -HEPARIN SODIUM,PORCINE/PF 5,000 UNIT/0.5 ML SYRINGE SQ PRN; +LACTATED RINGERS 1,000 ML IV SCH; +LIDOCAINE 1% (10MG/ML) FOR IV START INTRADERMA PRN; -MIDAZOLAM 2 MG/2 ML VIAL IV PRN; +ONDANSETRON 4 MG/2 ML VIAL IVP PRN; -TAMSULOSIN 0.4 MG CAP.ER.24H PO STA
[2022-08-17 10:32] VITALS: TEMP 96.9
[2022-08-17] MEDS ORDERED: LIDOCAINE 2% INJ 20 MG/ML (2 ML VIAL) ONE (12:03)
[2022-08-17] MEDS ORDERED: PROPOFOL 10 MG/ML 20 ML VIAL IV ONE (12:03)
[2022-08-17] MEDS ORDERED: SUCCINYLCHOLINE CHLORIDE 200 MG/10 ML VIAL IV ONE (12:03)
[2022-08-17] MEDS ORDERED: MIDAZOLAM 2 MG/2 ML VIAL ONE (12:03)
[2022-08-17] MEDS ORDERED: fentaNYL (PF) 50 MCG/ML 2 ML AMP ONE (12:03)
--- NOTE | 2022-08-17 12:57 | P.OP ---
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 The patient underwent induction of general anesthesia with oral endotracheal intubation without difficulty. The patient was prepped and draped using aseptic fashion. The tooth guard was placed and direct laryngoscopy was performed with systematic evaluation of the base of tongue vallecula both piriform sinuses post cricoid area and endolarynx. With the larynx in good visualization the laryngoscope was placed in suspension and the Zeiss microscope was brought into position. The only abnormality noted was a small area of leukoplakia of the right medial arytenoid and this was superficial. This was removed with microdissection technique with the mucosa only removed. Hemostasis was gained spontaneously. The submucosa and muscular layers were left intact. The laryngoscope and tooth guard were removed. The patient was allowed to emerge from general anesthesia having tolerated procedure well was extubated in the operating suite and transferred to postop recovery area in satisfactory condition.
[2022-08-17 13:00] VITALS: RESP 16
[2022-08-17 14:30] VITALS: BP 116/67; PULSE 62
== END 2022-08-17 14:52 | disposition home or self-care (01) ==
LOC: OR 09:40
PROVIDERS: ATTEND Otolaryngology
DX: J38.1 Polyp of vocal cord and larynx (principal); J38.3 Other diseases of vocal cords; J38.01 Paralysis of vocal cords and larynx, unilateral; J44.9 Chronic obstructive pulmonary disease, unspecified; I10 Essential (primary) hypertension; G47.33 Obstructive sleep apnea (adult) (pediatric); I71.40 Abdominal aortic aneurysm, without rupture, unspecified; Z79.899 Other long term (current) drug therapy; Z87.891 Personal history of nicotine dependence; Z79.51 Long term (current) use of inhaled steroids
CPT/HCPCS: 88305; 84132; 31536; J2250; J0330; J1100; J2405; J3010; J2704; J2001; 88312

== ENCOUNTER → 2023-03-17 | Outpatient (CLI) | payer BC ==
--- NOTE | 2023-03-17 11:46 | CTL ---
EXAMINATION TYPE: CT Low Dose Lung DATE OF EXAM ORDERED: 03/17/2023 HISTORY: 67-year-old male Z87.891. Lung cancer screening. Former smoker. 31 pack-year history. Compla ining of shortness of breath. Automated exposure control for dose reduction was used. SCREENING VISIT: Follow-up after 2 years COMPARISON: 09/08/2021 TECHNIQUE: Low dose computed tomography scan was performed through the chest with coronal and sagitta l reconstructions. CT DIAGNOSTIC QUALITY: Satisfactory FINDINGS: Heart normal size without pericardial effusion. Extensive three-vessel coronary artery calcifications are present in remarkable for coronary artery disease. There is trace bilateral gynecomastia. Ectatic ascending aorta at 3.9 cm. Mild atherosclerotic arch c alcifications with bovine configuration to the aortic arch. Unchanged borderline to mildly enlarged lower right paratracheal node measuring 1.1 cm. No progressiv e thoracic lymphadenopathy by CT size criteria. Mild diffuse bronchial wall thickening. A couple tiny 3 mm pulmonary nodules in the right upper lobe, axial image 49, 62, and 75. One of these represents a benign calcified granuloma. Mild to moderate centrilobular emphysema. Mild diffuse bronchial wall thickening. Some scattered inte rstitial scarring in the lower lungs. No consolidation or pleural effusion. Tiny hiatal hernia. Visualized upper abdomen shows cholecystectomy. Bones: Slight levoconvex curvature along the lower thoracic spine. Scattered mild degenerative disc d isease. IMPRESSION: 1. LungRADS 2 benign. A few tiny 3 mm pulmonary nodules in the right upper lobe. One represents a shantanu ign calcified granuloma. 2. COPD with mild to moderate emphysema. 3. CAD with extensive three-vessel coronary artery calcifications. CT LUNG RAD AND CT CHEST RECOMMENDATION: Lung-Rad 2 Benign Appearance or Behavior: Continue annual sc reening with LDCT in 12 months.
== END | disposition home or self-care (01) ==
LOC: RADCTMAIN 09:19
PROVIDERS: ATTEND Family Medicine
DX: Z12.2 Encounter for screening for malignant neoplasm of respiratory organs (principal); J43.2 Centrilobular emphysema; I25.10 Atherosclerotic heart disease of native coronary artery without angina pectoris; J84.10 Pulmonary fibrosis, unspecified; R91.8 Other nonspecific abnormal finding of lung field; Z87.891 Personal history of nicotine dependence
CPT/HCPCS: 71271

== ENCOUNTER 2023-05-05 10:33 | Day surgery (SDC) | payer BC ==
[2023-05-03 13:43] VITALS: BMI 34.0
[2023-05-05] MEDS ORDERED: LACTATED RINGERS 1,000 ML IV SCH (11:13)
[2023-05-05 11:24] VITALS: RESP 16; TEMP 97.4
[2023-05-05] MEDS ORDERED: PROPOFOL 10 MG/ML 20 ML VIAL IV ONE (12:21)
--- NOTE | 2023-05-05 12:38 | P.PCN ---
Date of Procedure: 05/05/23 Procedure(s) Performed: BRIEF HISTORY: Patient is a 67-year-old pleasant white female scheduled for an elective colonoscopy as a part of evaluation of prior history of colon polyps. PROCEDURE PERFORMED: Colonoscopy snare polypectomy. PREOPERATIVE DIAGNOSIS: History of colon polyps. IV sedation per Anesthesia. PROCEDURE: After informed consent was obtained, the patient, was brought into the endoscopy unit. IV sedation was administered by Anesthesia under continuous monitoring. Digital rectal examination was normal. Initially the Olympus CF-160 flexible video colonoscope was then inserted in the rectum, gradually advanced into the cecum without any difficulty. Careful examination was performed as the scope was gradually being withdrawn. Ileocecal valve and the appendiceal orifice were visualized and appeared normal. Prep was excellent. Mucosa of the cecum, the normal. Ascending colon there was a 5 limited sessile polyp that was removed by snare polypectomy. Rest of the ascending colon, transverse colon, descending colon, sigmoid colon, and rectum appeared normal. At her sigmoid div erticulosis. Retroflexion was performed in the rectum and no lesions were seen. The patient tolerated the procedure well. IMPRESSION: 5 mm sessile ascending colon polyp status post cold snare polypectomy Scattered sigmoid diverticulosis RECOMMENDATIONS: Findings of this examination were discussed with the patient well as his family. He was advised to follow with the biopsy result. Recommend repeat colonoscopy in 5 years from now.
[2023-05-05 12:51] VITALS: BP 118/68; PULSE 70
== END 2023-05-05 13:14 | disposition home or self-care (01) ==
LOC: ORWHC2ENDO 10:33
PROVIDERS: ATTEND Internal Medicine Gastroenterology
DX: Z12.11 Encounter for screening for malignant neoplasm of colon (principal); D12.2 Benign neoplasm of ascending colon; K57.30 Diverticulosis of large intestine without perforation or abscess without bleeding; I10 Essential (primary) hypertension; E78.5 Hyperlipidemia, unspecified; I71.40 Abdominal aortic aneurysm, without rupture, unspecified; J44.9 Chronic obstructive pulmonary disease, unspecified; M19.90 Unspecified osteoarthritis, unspecified site; Z79.51 Long term (current) use of inhaled steroids; Z79.82 Long term (current) use of aspirin; Z79.899 Other long term (current) drug therapy; Z88.0 Allergy status to penicillin; Z90.49 Acquired absence of other specified parts of digestive tract
CPT/HCPCS: 88305; 45385; J2704

== ENCOUNTER 2023-06-15 07:16 | Day surgery (SDC) | payer BC ==
[~2023-06-15 07:16] MED LIST changes: +ALPRAZolam 0.25 MG TAB PO PRN; +ALPRAZolam 0.5 MG TAB PO PRN; +ASPIRIN 325 MG TAB PO STA; +ATORVASTATIN 80 MG TAB PO STA; -DEXAMETHASONE SOD PHOSPHATE 4 MG/ML 1 ML VIAL IV ONE; -DEXAMETHASONE SOD PHOSPHATE 4 MG/ML 1 ML VIAL IV PRN; -FAMOTIDINE 20 MG/2 ML VIAL IV PRN; +HEPARIN SODIUM,PORCINE (1 ML) 2,500 UNIT in SODIUM CHLORIDE 0.9% 250 ML IRRIGATION PRN; +HEPARIN SODIUM,PORCINE 10,000 UNIT in SODIUM CHLORIDE 0.9% 1,000 ML IRRIGATION PRN; -HYDROmorphone 0.5 MG/0.5 ML SYRINGE IVP PRN; -LACTATED RINGERS 1,000 ML IV SCH; -LIDOCAINE 1% (10MG/ML) FOR IV START INTRADERMA PRN; +NITROGLYCERIN SL TABS 0.4 MG TAB SUBLINGUAL PRN; -ONDANSETRON 4 MG/2 ML VIAL IVP ONE; -ONDANSETRON 4 MG/2 ML VIAL IVP PRN; +SODIUM CHLORIDE 0.9% 1,000 ML in EMPTY BAG 1 BAG IV SCH
[2023-06-15] MEDS ORDERED: SODIUM CHLORIDE 0.9% 1,000 ML IV ONE ×2 (07:29→13:00)
[2023-06-15 07:38] VITALS: RESP 16; TEMP 97.7
[2023-06-15 07:53] LABS: Basophils # (A) 0.1 k/uL (0-0.2); Basophils % (A) 1 %; Eosinophils # (A) 0.5 k/uL (0-0.7); Eosinophils % (A) 4 %; HGB 15.7 gm/dL (13.0-17.5); Lymphocytes # (A) 2.1 k/uL (1.0-4.8); Lymphocytes % (A) 19 %; MCH 31.5 pg (25.0-35.0); MCHC 32.8 g/dL (31.0-37.0); MCV 95.9 fL (80.0-100.0); Mean Platelet Volume 8.1; Monocytes # (A) 0.7 k/uL (0-1.0); Monocytes % (A) 7 %; Neutrophils # (A) 7.5 k/uL (1.3-7.7); Neutrophils % (A) 68 %; Platelet Count 252 k/uL (150-450); RDW 13.1 % (11.5-15.5); WBC 11.1 k/uL (3.8-10.6)
[2023-06-15] MEDS ORDERED: HEPARIN SODIUM 1,000 UN/ML (10ML VL) ONE ×2 (08:54→10:11)
[2023-06-15] MEDS ORDERED: VERAPAMIL 2.5 MG/ML 2 ML AMP ONE ×2 (08:54→09:52)
[2023-06-15] MEDS ORDERED: fentaNYL (PF) 50 MCG/ML 2 ML AMP ONE (08:55)
[2023-06-15] MEDS ORDERED: fentaNYL (PF) 50 MCG/1 ML VIAL IVP ONE (09:06)
[2023-06-15] MEDS ORDERED: MIDAZOLAM 2 MG/2 ML VIAL IVP ONE (09:06)
[2023-06-15] MEDS ORDERED: LIDOCAINE 1% INJ 10MG/ML (5 ML VIAL-PF) SQ ONE (09:07)
[2023-06-15] MEDS ORDERED: VERAPAMIL SYRINGE (5 MG/10 ML) INTRAARTER ONE ×2 (09:10→10:21)
[2023-06-15] MEDS: NITROGLYCERIN 1000MCG/10ML SYRINGE INTRAARTER ONE ×3 (09:12→10:42)
[2023-06-15] MEDS: HEPARIN SODIUM 1,000 UN/ML (10ML VL) IV ONE ×4 (09:14→10:42)
[2023-06-15] MEDS ORDERED: IOPAMIDOL-370 100ML BTL INJ ONE ×2 (09:57→10:45)
--- NOTE | 2023-06-15 10:07 | P.CARDCATH ---
Date of Procedure: 06/15/23 Description of Procedure: DIAGNOSTIC CORONARY ANGIOGRAPHY and LEFT HEART CATH REPORT PROCEDURES PERFORMED: 1. Left heart catheterization 2. Selective coronary angiography 3. Moderate conscious sedation 24 mins 4. Right radial access INDICATION: Unstable Angina. Patient is a 70-year-old past medical history of COPD, smoking, prediabetes presented to the clinic with worsening exercise tolerance and easy fatigue and shortness of breath with minimal exertion like walking less than 100 m. Is also experiencing chest pressure and tightness with exertion. CONSENT: I have discussed the risks, benefits and alternative therapies for the above-mentioned procedure, sedation/analgesia and necessary blood product administration (if indicated, as they pertain to this patient). The patient has indicated understanding and acceptance of the risks and procedures discussed. Conscious Sedation: Patient's ECG, heart rate, blood pressure, pulse oxymetry was monitored throughout the duration of procedure under the direct supervision. [2] mg Versed and [50] mg Fentanyl were used for induction of moderate conscious sedation. Total duration of [24] minutes PROCEDURE: After the risks, benefits and alternatives of the above mentioned procedure explained in detail with the patient, informed consent was obtained. Patient was taken to the catheterization lab and prepped and draped in usual sterile fashion. 1% lidocaine was infiltrated over the right radial artery. A 6-English sheath was placed in the right radial artery using modified Seldinger technique. The sheath was flushed and 200 mcg Nitroglycerine and 4 mg verapamil was administered intra-arterially. J tipped wire was advanced under fluoroscopic guidance. Once the wire tip reached aortic root [6000] units of IV heparin was given. Over the wire JL3.5 diagnostic catheter was advanced. Wire was removed, catheter was flushed and manipulated under fluoroscopy to selectively engaged the left coronary ostium. Left coronary angioplasty was performed in different angiographic projections. This catheter was exchanged for a JR4 diagnostic catheter over the wire. The catheter was flushed and manipulated to cross the aortic valve. LV pressures were obtained. Pullback was performed across aortic valve and catheter was manipulated to selectively engage the right coronary ostium under fluoroscopic guidance. Right coronary angiography was performed in different angiographic projections. Catheter was removed over the wire. Radial sheath was flushed. Images were reviewed carefully and case was discussed with podiatry teacher. This is most made to proceed with FFR assessment of RCA and LAD in FFR guided PCI. HEMODYNAMICS: Aortic Pressure: [112/75] mmHg. LV pressure: [112/5] mmHg. LVEDP [16] mmHg. SELECTIVE CORONARY ARTERIOGRAPHY: LEFT MAIN: The left main is a large caliber vessel which bifurcates into the LAD and circumflex. There is no significant stenosis. LEFT ANTERIOR DESCENDING CORONARY ARTERY: LAD is a large caliber vessel which wraps around to the apex. Proximal LAD has a focal napkin ring lesion of 80-90% stenosis just prior to the bifurcation of diagonal 1. Mid and distal RCA has diffuse 30-40% disease. LAD gives to diagonal branches. Diagonal 1 is medium- sized and is patent with minimal luminal irregularities. Diagonal 2 is medium size and patent with 20-30% disease. Diagonal 3 medium size, has 30%-40% ostial disease with 20-30% luminal irregularities in body. LEFT CIRCUMFLEX CORONARY ARTERY: Non-dominant. Left circumflex is a moderate caliber vessel mild luminal irregularities. It gives large OM1 branch which has diffuse 40% disease. RIGHT CORONARY ARTERY: Dominant. The right coronary artery is a large caliber vessel which gives off a PDA and PLV branch. Mid RCA has long segment of irregular, ulcerated 80% stenosis. Distal RCA just prior to bifurcation of PDA and PL branch has 50-60% disease. IMPRESSION: 1. 80% diffuse ulcerated calcific stenosis of Mid RCA 2. 70-80% napkin ring stenosis of Proximal LAD 3. Moderate non obstructive disease in other coronary arteries 4. Normal LVEDP. PLAN: 1. Aggressive risk factor modification per most recent ACC/AHA guidelines. 2. Follow-up in the office in 1-2 weeks. 3. Please refer to interventional cardiology report for interventional c omponent. Further recs to follow. Performing Physician Ruddy Vincent MD
[2023-06-15] MEDS ORDERED: TICAGRELOR 90 MG TAB ONE (10:25)
[2023-06-15] MEDS ORDERED: TICAGRELOR 90 MG TAB PO ONE (10:26)
--- NOTE | 2023-06-15 11:04 | P.PRCINT ---
Percutaneous Coronary Int. - Percutaneous Coronary Intervention Percutaneous Coronary Intervention: PROCEDURES PERFORMED: Bilateral coronary angiography, iFR/FFR RCA, iFR LAD, IVUS LAD, PCI proximal LAD with a 4.0 x 8mm Xience GUERRERO INDICATION: New onset dyspnea on exertion consistent with unstable angina CONSENT:I have discussed the risks, benefits and alternative therapies for the above-mentioned procedure and for both sedation/analgesia as well as necessary blood product administration, if indicated, as they pertain to this patient. The patient has indicated understanding and acceptance of the risks and procedures discussed. PROCEDURE: After the risks, benefits and alternatives of the above mentioned procedure explained in detail with the patient, informed consent was obtained. Patient was taken to the catheterization lab and prepped and draped in usual fashion and previously a 6-[place] sheath had been placed in the right radial artery. The decision was made to perform functional assessment of the RCA and LAD. Heparin was given. A 6-[place] AL 0.75 guide was used to engage the RCA. A 0.014 pressure wire was advanced into the proximal RCA and then normalized. It was then advanced into the distal RCA. First wire had poor connection and faulty wiring and therefore second wire was used. A second wire was advanced into the distal RCA and initial iFR was 0.97 however appeared more significant angiographically and therefore FFR was performed and was abnormal at 0.70 within approximately 1 minute. LAD lesion appeared possibly more significant and therefore further functional assessment was recommended. A 6-[place] CLS 3.5 guide was disease engage the left main. A 0.014 pressure wire was advanced in the proximal left main and normalized. He was then advanced since the mid LAD. iFR was abnormal at 0.87. Therefore the decision was made to perform PCI of LAD. An additional 0.014 BMW wire was advanced since the diagonal 1 branch. Predilation was performed with a 3.0 x 8 mm balloon. There was a small area of landing zone between the left main in the diagonal branch and appeared 8 mm at most. Intravascular ultrasound showed reference vessel 4.0 mm with minimal ectasia of the area just distal to the stent measuring approximately 4.5-5 mm. There is diffuse disease of the mid LAD. A 4.0 x 8 mm Xience GUERRERO was placed in the proximal LAD. Repeat intravascular ultrasound showed excellent stent apposition with no dissection. Final angiograms were performed. Preinterventi on there is 80% proximal LAD stenosis and ROWENA-3 flow and postintervention there was less than 10% stenosis with ROWENA 3 flow. The right radial sheath was removed and a TR band was placed with hemostasis achieved. The patient tolerated the procedure well. Patient was transported back to the post catheterization holding area in stable condition. Conscious Sedation: Patient was monitored under the direct supervision of myself for conscious sedation using Versed and fentanyl for a total duration of 54 minutes HEMODYNAMICS: Aorta: 128/72 SELECTIVE CORONARY ARTERIOGRAPHY: LEFT MAIN: The left main is a large caliber vessel which bifurcates into the LAD and circumflex. There is no significant stenosis. LEFT ANTERIOR DESCENDING CORONARY ARTERY: LAD is a large caliber vessel which wraps around to the apex. There is a proximal LAD 80% stenosis followed by mild ectasia of the segment just past the diagonal 1 branch and diffuse mid 30-50% stenosis. LEFT CIRCUMFLEX CORONARY ARTERY: Left circumflex is a moderate caliber vessel mild luminal irregularities. RIGHT CORONARY ARTERY: The right coronary artery is a large caliber vessel which gives off a PDA and PLV branch and is the dominant vessel. There is a mid RCA 80% stenosis. FINAL IMPRESSION: 1. CAD as described above including proximal LAD 80%, mid LAD 30-50%, mid RCA 80% stenosis 2. FFR RCA abnormal, iFR LAD abnormal 3. S/p PCI proximal LAD with 4.0 x 8mm Xience GUERRERO PLAN: 1. Aggressive risk factor modification per most recent ACC/AHA guidelines. 2. Continue dual antiplatelets with aspirin and Brillinta for 12 months given unstable angina symptoms. Staged PCI of RCA.
[2023-06-15] MEDS ORDERED: ISOSORBIDE MONONITRATE ER 15 MG TAB PO STA (11:13)
[2023-06-15] MEDS ORDERED: MAG HYDROX/AL HYDROX/SIMETH 30 ML CUP PO PRN (12:20)
[2023-06-15] MEDS ORDERED: ATROPINE SULFATE 0.1 MG/ML 10ML SYRINGE IV PRN (12:20)
[2023-06-15] MEDS ORDERED: ZOLPIDEM 5 MG TAB PO PRN (12:20)
[2023-06-15] MEDS ORDERED: RX INFO: IV CONTRAST WAS GIVEN 1 EACH MISC MISCELLANE PRN (12:20)
[2023-06-15] MEDS ORDERED: SODIUM CHLORIDE 0.9% 1,000 ML in EMPTY BAG 1 BAG IV SCH (12:30)
[2023-06-15 16:00] VITALS: BP 127/62; PULSE 68
[2023-06-15] MEDS ORDERED: SYMBICORT 160-4.5 MCG INHALER INHALATION SCH (20:00)
[2023-06-15] MEDS ORDERED: ATORVASTATIN 80 MG TAB PO SCH (21:00)
[2023-06-15] MEDS ORDERED: TICAGRELOR 90 MG TAB PO SCH (21:00)
[2023-06-16] MEDS ORDERED: ASPIRIN 81 MG PO SCH (09:00)
[2023-06-16] MEDS ORDERED: METOPROLOL SUCCINATE (ER) 25 MG TAB.ER.24H PO SCH (09:00)
== END 2023-06-15 16:01 | disposition home or self-care (01) ==
LOC: CATHCVL 07:16
PROVIDERS: ATTEND Student in an Organized Health Care Education/Training Program
DX: I25.10 Atherosclerotic heart disease of native coronary artery without angina pectoris (principal); J44.9 Chronic obstructive pulmonary disease, unspecified; R73.03 Prediabetes; I10 Essential (primary) hypertension; E66.9 Obesity, unspecified; F17.210 Nicotine dependence, cigarettes, uncomplicated; E78.5 Hyperlipidemia, unspecified; Z82.49 Family history of ischemic heart disease and other diseases of the circulatory system; Z68.33 Body mass index [BMI] 33.0-33.9, adult; Z79.82 Long term (current) use of aspirin; Z79.899 Other long term (current) drug therapy
CPT/HCPCS: 93571; 92978; 93458; 93799; 85025; C9600; C1769 ×4; C1887 ×2; C1894; C1725; C1753; C1874; J2250; J2001; J1644; Q9967; J3010; J2305

== ENCOUNTER → 2024-05-27 | Outpatient (CLI) | payer MEDICARE ==
--- NOTE | 2024-05-27 15:58 | CTL ---
EXAMINATION TYPE: CT Low Dose Lung DATE OF EXAM: 05/27/2024 1:09 PM CLINICAL INDICATION:Male, 68 years old with history of Z12.2 LUNG CA SCR F17.210 CURRENT SMOKER; curr ent smoked 1 ppd x 32 years, , history of tobacco use. COMPARISON: None. TECHNIQUE: Multiple axial non-contrast scans were obtained from approximately the lung apices through the upper abdomen. Coronal and sagittal reformatted images were obtained. Low dose technique was uti lized. CT DLP: 128.8 mGycm, Automated exposure control for dose reduction was used. CT Contrast: Contrast used: None Oral contrast used: None FINDINGS: ======== Lack of intravenous contrast and low dose technique limits the evaluation of the vascular and soft ti ssue structures. LUNGS: No evidence of pulmonary fibrosis. No evidence of focal consolidation, pneumothorax or pleural effusion. Nodules: RUL: None. RML: None. RLL: 11 mm solid nodule with suggestion of subtle spiculations, series 4, image 107. NERISSA: None. LLL: None. AIRWAY: Patent and unremarkable. HEART: Size within normal limits. Moderately severe calcific coronary artery atherosclerosis. MEDIASTINUM: No gross evidence of adenopathy. VASCULATURE: No aortic aneurysm. MUSCULOSKELETAL: No acute osseous abnormalities SOFT TISSUES/LYMPH NODES: Unremarkable. LOWER NECK: No significant findings. UPPER ABDOMEN: No significant findings. IMPRESSION: 1. A right lower lobe 11 mm solid nodule with subtle spiculations. CT LUNG RAD AND CT CHEST RECOMMENDATION: Lung-Rad 4B or 4X Very Suspicious: Follow-up Chest CT with o r without contrast or PET/CT and/or tissue sampling. PET/CT may be used when there is a > 8 mm solid component. S Modifier (other clinically significant findings): S (moderately severe calcific coronary artery dis ease). Recommend smoking cessation (if current smoker), or continuation of smoking cessation (if prior smoke r). Annual screening for lung cancer with low-dose computed tomography is recommended in adults ages 55 to 77 years who have a 30 pack-year smoking history and currently smoke or have quit within the pa st 15 years. Screening should be discontinued once a person has not smoked for 15 years or develops a health problem that substantially limits life expectancy or the ability or willingness to have curat marshal lung surgery. Lung rads 2021 [email or web address]
== END | disposition home or self-care (01) ==
LOC: RADCTMAIN 12:42
PROVIDERS: ATTEND Family Medicine
DX: Z12.2 Encounter for screening for malignant neoplasm of respiratory organs (principal); R91.1 Solitary pulmonary nodule; I25.10 Atherosclerotic heart disease of native coronary artery without angina pectoris; F17.210 Nicotine dependence, cigarettes, uncomplicated
CPT/HCPCS: 71271

== ENCOUNTER → 2024-07-04 | Outpatient (CLI) | payer MEDICARE ==
--- NOTE | 2024-07-10 16:48 | PE ---
EXAMINATION TYPE: PET CT fusion skull to thigh DATE OF EXAM: 07/04/2024 COMPARISON: 05/27/2024 Prior PET/CT: None HISTORY: Solitary pulmonary nodule TECHNIQUE: Following the intravenous administration of 7.84 mCi of F-18 FDG, whole body images are p erformed from the skull base to the midthigh. Images are reviewed on the computer in the coronal, ax ial, and sagittal planes. Reconstructed rotating images are created on independent workstation and r eviewed on the computer. A localization and attenuation correction CT is performed in conjunction w ith the PET scan. DLP: 822.27 mGycm SCAN: Initial Blood glucose: 120 mg/dL Average Mediastinum SUV: 2.54 Average Liver SUV: 3.39 FINDINGS: NECK: No abnormal uptake THORAX: Nodule has mild uptake. SUV value 1.18. This is non specific, early metastasis or inflammato ry change is within the differential. A 1.3 cm lymph node in the subcarinal region does not have elevated SUV, SUV measures 1.75, Image 91. Couple of slightly more prominent but non enlarged lymph nodes are in the right peribronchial region, image 84, SUV 4.48. ABDOMEN: No abnormal uptake PELVIS: No abnormal uptake OSSEOUS STRUCTURES: No abnormal uptake LOCALIZATION CT: Small shoddy lymph nodes are within the mediastinum. Urinary artery calcification is noted. COMPARISON: Subcarinal lymph node may have increased slightly in size over the interval. Lung nodule and additional mediastinal adenopathy appears similar to the low-dose CT chest. IMPRESSION: 1. Increased uptake beyond background within small mediastinal lymph nodes. Findings are suspicious f or metastatic disease. 2. Small lung nodule has some intermediate uptake. Given the mediastinal adenopathy suspicious findin gs, the intermediate uptake however could be compatible with an early neoplastic process. Inflammator y change or is not excluded within this right lung nodule.
== END | disposition home or self-care (01) ==
LOC: RADPETMAIN 09:16
PROVIDERS: ATTEND Internal Medicine Critical Care Medicine
DX: R91.1 Solitary pulmonary nodule (principal); R59.0 Localized enlarged lymph nodes
CPT/HCPCS: 78815; A9552

== ENCOUNTER 2024-07-11 11:00 | Day surgery (SDC) | payer MEDICARE ==
[2024-07-11] MEDS: IV FLUID CONTINUATION 1,000 ML IV ONE (11:45)
[2024-07-11 11:49] VITALS: TEMP 97.6
[2024-07-11] MEDS ORDERED: LACTATED RINGERS 1,000 ML IV SCH (11:51)
[2024-07-11] MEDS: LACTATED RINGERS 1,000 ML IV SCH (11:54)
--- NOTE | 2024-07-11 12:27 | CT ---
EXAMINATION TYPE: CT Chest ION protocol DATE OF EXAM: 07/11/2024 COMPARISON: 05/27/2024 HISTORY: pre bronchial navigation CT DLP: 757 mGycm. Automated Exposure Control for Dose Reduction was Utilized. TECHNIQUE: CT scan of the thorax is performed without IV contrast. Findings: There are moderate emphysematous changes. There is 10.3 mm spiculated nodular mass in the right upper lobe highly suspicious for malignancy and further workup is warranted. No other lung masses or nodules are seen. There is no airspace consolidation. There is no abnormal interstitial density. The great vessels the chest are normal and is no mediastinal, hilar or axillary adenopathy. There is no pleural effusion, pleural thickening or pneumothorax. No focal osseous lesions are seen. Limited scanning through the upper abdomen reveals no gross abnormality IMPRESSION: 2.3 mm spiculated nodule in the right upper lobe highly suspicious for neoplasm and further workup is warranted.
[2024-07-11] MEDS ORDERED: PHENYLEPHRINE 10 MG/ML VIAL ONE (12:29)
[2024-07-11] MEDS ORDERED: LIDOCAINE 1% INJ 10MG/ML (20 ML MDV) ONE (12:29)
[2024-07-11] MEDS ORDERED: GLYCOPYRROLATE 0.2 MG/ML 2 ML VIAL ONE (12:29)
[2024-07-11] MEDS ORDERED: ROCURONIUM 10 MG/ML (5 ML VIAL) IV ONE (12:29)
[2024-07-11] MEDS ORDERED: SUGAMMADEX SODIUM 200 MG/2 ML SDV IV ONE (12:29)
[2024-07-11] MEDS ORDERED: NEOSTIGMINE 1 MG/ML 10 ML VIAL ONE (12:29)
[2024-07-11] MEDS ORDERED: SUCCINYLCHOLINE CHLORIDE 200 MG/10 ML VIAL IV ONE (12:29)
[2024-07-11] MEDS ORDERED: PROPOFOL 10 MG/ML 20 ML VIAL IV ONE (12:29)
[2024-07-11] MEDS: LACTATED RINGERS 1,000 ML IV ONE (13:55)
--- NOTE | 2024-07-11 14:10 | P.PCN ---
Date of Procedure: 07/11/24 Operative Findings: Preoperative Diagnosis: Right upper lobe pulmonary nodule, PET avid Mediastinal lymphadenopathy Postoperative Diagnosis: Right upper lobe pulmonary nodule, PET avid Mediastinal lymphadenopathy Procedure(s) Performed: Flexible bronchoscopy Robotic-assisted bronchoscopy and addition to radial ultrasound evaluation of the pulmonary nodule Robotic-assisted transbronchial needle aspirate, transbronchial biopsies of the right upper lobe opacity,transbronchial brushings in addition to a bronchioloalveolar lavage Endobronchial ultrasound for mediastinal lymph node evaluation, EBUS guided biopsy of a subcarinal station 7 and right hilar station 4R lymph nodes. Anesthesia: GETA Surgeon: Micki Coyne Estimated Blood Loss (ml): 0 Pathology: other Condition: stable Disposition: same day Operative Findings: A physical exam was performed. Informed consent was obtained from the patient after explaining all the risks (pneumothorax, life threatening bleeding, infection and adverse effects due to medications), benefits and alternatives to the procedure which the patient appeared to understand and so stated. The patient was connected to the monitoring devices. General anesthesia was induced and the patient was intubated by anesthesia. A final timeout was performed and the procedure confirmed by the attending staff bronchoscopist. The bronchoscope was inserted and the airway examined. The flexible bronchoscope was removed and the robotic bronchoscope was inserted. Registration was completed. I next guided the robotic bronchoscope using the navigation system into the right upper lobe, posterior segment. Once in proper position, the bronchoscope was frozen. The radial EBUS probe was placed through the bronchoscope and confirmed abnormal u/s images vs normal lung. A needle was placed through the working channel and under fluoroscopic guidance, we sampled the area twice. We then used a cloud biopsy pattern with ultrasound confirmation for 1 additional passes with the needle. U/S evaluation was then used to reconfirm location. Forceps were next introduced through working channel and extended the appropriate distance and 3 transbronchial biopsies were performed using fluoroscopic guidance. The u/s probe was then reinserted to confirm location. When confirmed this process was repeated for a total of 8-10 transbronchial biopsies. After reassessment with EBUS, a brush was placed through the extendable working channel for 1 pass with fluoroscopic guidance. U/S evaluation was then used to confirm location. 40ml of saline was then instilled into the area of the lesion. A total of 10 cc of bloody aspirate was obtained. The robotic bronchoscope was removed and the airway inspected with a flexible bronchoscope and 10 ml of effluent from the BAL was collected. The aspirate was bloody and ultimately declotted and based on that, the sample was discarded. Flex. bronchoscope was inserted and regular suctioning was done. At the completion of the procedure, no residual secretions or bloody material within the airway. The bronchoscope was removed. The endobronchial ultrasound was inserted. Endobronchial ultrasound was inserted. Direct inspection of the mediastinal stations revealed a subcarinal mediastinal lymph node, station 7, measuring 12 mm in size by 9 mm in size. Another station 4R lymph node was visualized measuring 9 mm in size. Based on that, transbronchial needle aspirate of the lymph nodes was done. A total of 5 passes were taken at the level of station 7 and 4 passes at the level of station 4R. No bleeding was encountered. No complications. Endobronchial ultrasound was removed. A 22-gauge VISZ shot needle was used to perform the procedure. Flexible bronchoscope was reinserted and the airways were cleared from any residual respiratory secretions. RECOMMENDATIONS: Await pathology and cytology results The referring physician will be alerted to the results when available. The patient was advised to follow up with the referring physician with the biopsy results Patient will be called with results.
[2024-07-11] MEDS: IPRATROPIUM-ALBUTEROL 3 ML NEB INHALATION PRN (14:21)
[2024-07-11] MEDS: HYDROmorphone 0.5 MG/0.5 ML SYRINGE IVP PRN (14:42)
--- NOTE | 2024-07-11 14:50 | XR ---
EXAMINATION TYPE: XR chest 1V DATE OF EXAM: 07/11/2024 2:31 PM CLINICAL INDICATION: Male, 68 years old with history of Postbiopsy; COMPARISON: Chest radiographs from 12/28/2019 TECHNIQUE: XR chest 1V Frontal view of the chest. FINDINGS: Lungs/Pleura: There is no evidence of pleural effusion, focal consolidation, or pneumothorax. Pulmonary vascularity: Unremarkable. Heart/mediastinum: Cardiomediastinal silhouette is unremarkable. Musculoskeletal: No acute osseous pathology. Other findings: None IMPRESSION: No evidence for pneumothorax. No acute cardiopulmonary disease/process.
[2024-07-11 15:33] VITALS: RESP 20
[2024-07-11 15:40] VITALS: BP 121/76; PULSE 63
--- NOTE | 2024-08-08 10:35 | FL ---
EXAMINATION TYPE: FL bronchoscopy DATE OF EXAM: 07/11/2024 1:25 PM COMPARISON: Pre Operative Images if available both CT/MRI or plain film CLINICAL INDICATION: Male, 68 years old with history of BRONCH WITH ION ROBOT; TECHNIQUE: FL bronchoscopy, multiple fluoroscopic images provided for procedure. Total fluoroscopy time: 55.9 seconds Total submitted images to PACS: 1 DAP: 1.1098 mGym2 Gycm2 uGym2 cGycm2 or equivalent. FINDINGS: ION bronchoscopy images demonstrate bronchoscope terminating in the lung. No immediate complications identified, no pneumothorax identified. IMPRESSION: 1. No evidence for intraoperative complication. 2. Please see the operative/procedural note for further details. [facility], , 08/08/2024 10:33 AM
== END 2024-07-11 16:04 | disposition home or self-care (01) ==
LOC: RADCTMAIN 11:00
PROVIDERS: ATTEND Internal Medicine Critical Care Medicine
DX: R91.1 Solitary pulmonary nodule (principal); I10 Essential (primary) hypertension; E78.5 Hyperlipidemia, unspecified; J44.9 Chronic obstructive pulmonary disease, unspecified; G47.33 Obstructive sleep apnea (adult) (pediatric); K21.9 Gastro-esophageal reflux disease without esophagitis; Z87.891 Personal history of nicotine dependence; Z95.5 Presence of coronary angioplasty implant and graft; Z90.49 Acquired absence of other specified parts of digestive tract; Z79.51 Long term (current) use of inhaled steroids; Z79.82 Long term (current) use of aspirin
CPT/HCPCS: 87798 ×3; 87496; 87498; 87529; 88305; 87502; 87634; 87070; 87205; 87075; 87116; 87102; 87077; 87186; 87206; 71045; 71250; 31628; 31629; 31623; 31624; 31652; J0330; J2710; J2001; J2704; J1170; J2371; J1596; S2900

== ENCOUNTER → 2024-11-14 | Outpatient (CLI) | payer MEDICARE ==
[2024-11-14 10:32] LABS: African American GFR (CKD) >90 (>60 ml/min/1.73 sqM); Blood Urea Nitrogen 17 mg/dL (9-20); Non-African American GFR(CKD) >90 (>60 ml/min/1.73 sqM)
--- NOTE | 2024-11-15 08:54 | CT ---
EXAMINATION TYPE: CT chest w con DATE OF EXAM: 11/14/2024 COMPARISON: Most recent prior PET/CT July 04, 2024 and older studies HISTORY: pulmonary nodule CT DLP: 471.40 mGycm. Automated Exposure Control for Dose Reduction was Utilized. TECHNIQUE: CT scan of the thorax is performed following with IV Contrast, patient injected with 100 mL of Isovue 300. FINDINGS: LUNGS:, Mild to moderate underlying emphysematous change is redemonstrated. Slight interval growth i n the right upper lobe pulmonary nodule now measuring 1.3 x 1.3 cm versus 0.9 x 0.9 cm on PET/CT stud y. No new greater than 6 mm pulmonary nodules or masses. MEDIASTINUM: There are no new greater than 1 cm hilar or mediastinal lymph nodes. No cardiomegaly o r pericardial effusion is seen. There is coronary artery calcification and right coronary artery misael nts redemonstrated. OTHER: No new adrenal masses. Slight scoliotic curvature in the thoracic spine is again seen. IMPRESSION: There is slight interval growth in the right upper lobe pulmonary nodule, despite signifi cant hypermetabolic uptake on PET/CT a low-grade neoplasm needs to be considered. Advise cardiothorac ic surgical evaluation. [facility], , 11/15/2024 8:51 AM
== END | disposition home or self-care (01) ==
LOC: RADCTMAIN 09:44
PROVIDERS: ATTEND Internal Medicine Critical Care Medicine
DX: R91.1 Solitary pulmonary nodule (principal)
CPT/HCPCS: 82565; 84520; 71260; 36415; Q9967

== ENCOUNTER 2025-01-02 05:37 | Inpatient (IN) | payer MEDICARE ==
[2024-12-31 08:36] VITALS: BMI 34.0
[2025-01-02] MEDS ORDERED: LIDOCAINE 1% (10MG/ML) FOR IV START INTRADERMA PRN (05:49)
[2025-01-02] MEDS: LACTATED RINGERS 1,000 ML IV ONE ×3 (06:30→08:51)
[2025-01-02] MEDS: LACTATED RINGERS 1,000 ML IV SCH (06:30)
[2025-01-02] MEDS: DEXAMETHASONE SOD PHOSPHATE 4 MG/ML 1 ML VIAL IV ONE (06:35)
[2025-01-02] MEDS: ONDANSETRON 4 MG/2 ML VIAL IVP ONE (06:36)
[2025-01-02] MEDS: MIDAZOLAM 2 MG/2 ML VIAL IV PRN (07:02)
[2025-01-02] MEDS: fentaNYL (PF) 50 MCG/ML 2 ML AMP IVP PRN (07:04)
--- NOTE | 2025-01-02 07:20 | P.ANPRN ---
Procedure Note - Anesthesia - Nerve Block Performed Right Erector Spinae Single Time Out Performed: Yes Date of Procedure: 01/02/25 Procedure Start Time: : Procedure Stop Time: : Location of Patient: PreOp Indication: Acute Post-Operative Pain, Requested by Surgeon Sedation Type: Sedate with meaningful contact maintained Preparation: Sterile Prep Position: Prone Needle Types: Pajunk Needle Gauge: 21 Ultrasound used to visualize needle placement: Yes Ultrasound used to observe medication spread: Yes Injectate: 0.5% Ropivacaine (see comment for volume) (30 mL +4 mg of dexamethasone) Blood Aspirated: No Pain Paresthesia on Injection Noted: No Resistance on Injection: Normal Image Stored and Saved: Yes Events: Uneventful and Well Tolerated
[2025-01-02] MEDS ORDERED: LIDOCAINE 1% INJ 10MG/ML (20 ML MDV) ONE (07:33)
[2025-01-02] MEDS ORDERED: NEOSTIGMINE 1 MG/ML 10 ML VIAL ONE (07:33)
[2025-01-02] MEDS ORDERED: SUCCINYLCHOLINE CHLORIDE 200 MG/10 ML VIAL IV ONE (07:33)
[2025-01-02] MEDS ORDERED: ROCURONIUM 10 MG/ML (5 ML VIAL) IV ONE (07:33)
[2025-01-02] MEDS ORDERED: PROPOFOL 10 MG/ML 20 ML VIAL IV ONE (07:33)
[2025-01-02] MEDS ORDERED: fentaNYL (PF) 50 MCG/ML 2 ML AMP ONE (07:33)
[2025-01-02] MEDS ORDERED: GLYCOPYRROLATE 0.2 MG/ML 2 ML VIAL ONE (07:33)
[2025-01-02] MEDS ORDERED: PHENYLEPHRINE-0.9% NACL SYG 1,000 MCG/10 ML SYRINGE ONE (07:33)
[2025-01-02] MEDS ORDERED: DEXAMETHASONE SOD PHOSPHATE 4 MG/ML 1 ML VIAL ONE (07:33)
[2025-01-02] MEDS ORDERED: ROPIVACAINE 5 MG/ML 30 ML VIAL ONE (07:33)
[2025-01-02] MEDS: BUPIVACAINE (PF) 0.5% 30 ML VIAL SQ ONE ×2 (08:22)
[2025-01-02] MEDS: LIDOCAINE 1%-EPI 1:100,000 20 ML VIAL SQ ONE ×2 (08:23)
[2025-01-02] MEDS: HYDROmorphone 0.5 MG/0.5 ML SYRINGE IVP PRN (11:13)
[2025-01-02] MEDS: HYDROmorphone 0.5 MG/0.5 ML SYRINGE IVP ONE (11:19)
[2025-01-02] MEDS: ALBUTEROL NEBULIZED 2.5 MG/3 ML INHALATION STA (11:27)
--- NOTE | 2025-01-02 11:34 | P.OP ---
Date of Procedure: 01/02/25 Preoperative Diagnosis: Right upper lobe enlarging mass Postoperative Diagnosis: Right upper lobe enlarging mass Procedure(s) Performed: Robotic assisted right upper lobectomy with mediastinal lymph node dissection Anesthesia: GETA, regional, local Surgeon: David Mcgee Estimated Blood Loss (ml): 25 Pathology: other (See operative findings) Condition: stable Disposition: PACU Indications for Procedure: Patient with progressively enlarging right upper lobe nodule within the central portion of the right upper lobe Operative Findings: 1. Level 8R lymph node 2. Level 7 lymph node 3. Level 4R lymph node 4. Level 10R lymph node 5. Level 11R lymph node 6. Level 12R lymph node 7. Right upper lobe specimen Several lymph nodes looked inflammatory but no obvious suspicious nodes. Tumor palpated within specimen Description of Procedure: After consent was obtained, the patient was taken to the operating room where he underwent general by dual-lumen endotracheal tube anesthesia with placement bronchoscopy. After confirmation of the airway he was turned in left lateral decubitus position and prepped and draped in sterile fashion after the table was flexed and he was appropriately fixed to the table. A timeout was then observed whereby the patient, the site, the side, antibiotic delivery, personnel in the room and films up and viewable were all confirmed. We then proceeded to inject the patient after marking at the camera port site. We made incision with 15 blade knife and gained blunt access to the right chest. Upon entry, the patient's lung looked good but was not yet collapsed. The tube was clamped out of the system and opened and his lung deflated appropriately with insufflation of CO2 at 7 cm water pressure. We then used the scope to place our other 3 cannula sites, anterior and the ninth rib space posterior in the ninth rib space and anterior in the 10th rib space. We then brought in the robot and docked it to the cannulae. We then placed the camera and used the targeting feature to optimally adjust the arms. We then placed our 2 instruments under direct vision of the scope and passed a cigar sponge in 4 manipulation. We then investigated the fissure and the major fissure was almost complete. The minor fissure was partially complete and after evaluating that we exposed the inferior pulmonary ligament and proceeded to divide it and dissected posteriorly up the hilum. We located no level 9 lymph nodes but did locate a level 8 and a level 7 lymph node. These were taken as specimen. We then dissected upon the bronchus to the bifurcation of the bronchus intermedius and the upper lobe bronchus. We located a level 11 lymph node there and took that a specimen. We then flipped the lung posteriorly and turned our attention to the anterior hilum. We located the branches of the pulmonary veins and verified the branch to the middle lobe prior to taking the branches to the upper lobe with a single firing of a 30 mm vascular stapling load. Once that was accomplished we cleaned off the pulmonary artery locating the truncus branch and then we took a level 10 lymph node opening up the space for us to gain circumferential control. We then used a vascular stapling load to divide at main branch. After that was accomplished, we pushed the lung anteriorly and gained circumferential control around the upper lobe bronchus. Once that was accomplished we were able to pass a 30 mm green stapling load around it and once that had been done we took a test breath and noted airflow into the middle and lower lobes. We then divided the bronchus and proceeded to develop the lobe with multiple firings of the 30 mm blue stapling load. Once the lobe was detached, because we did not find a level 9 lymph node, we went ahead and dissected the level 4 lymph node basin and located a large level 4R lymph node and took that a specimen. We then packed a cigar sponge in that temo basin that would be removed later after the robot was detached. We then placed a catch bag into the chest and placed the lobe into it after making sure all other foreign bodies were out of the chest cavity. We then removed the bag from the chest enlarging the assistance port slightly with a 15 blade knife. Once the specimen was out we felt through the bag and located the nodule squarely within the center of the lobe. We were then able to undocked the robot and then used laparoscopic instruments to remove the sponge packed in the level 4 lymph node basin and used suction to verify there was no ongoing bleeding. We then placed a 24 [place]ian straight thoracic catheter in the anteriormost port site and a 19 [place] drain in the assistance port site. The port sites were closed with a buried interrupted 2-0 Vicryl suture and the skin with a 4-0 Monocryl suture buried interrupted. The assistance port site that had been enlarged was closed with a 0 Vicryl suture in 2 layers with the first layer for the fascia and the second layer for the subcutaneous layer. The subcuticular was a running 4-0 Monocryl suture and we used skin glue for the dressings with 4 x 4's and tape around the chest tube exit sites. The chest tubes were placed to a Y and then to a Pleur-evac container without difficulty. The patient was then rolled supine, extubated and taken to PACU in good condition. The family was notified in the waiting room regarding the details of the operation and condition of the patient.
[2025-01-02] MEDS: droPERidol 2.5 MG/ML VIAL IVP ONE (11:42)
--- NOTE | 2025-01-02 11:47 | XR ---
EXAMINATION TYPE: XR chest 1V portable DATE OF EXAM: 01/02/2025 11:38 AM COMPARISON: 07/11/2024 CLINICAL INDICATION: Male, 69 years old with history of post lobectomy, TECHNIQUE: XR chest 1V portable view(s) obtained. FINDINGS: The heart size is normal. The pulmonary vasculature is normal. No pneumothorax post lobectomy. Two right-sided chest tubes appear to be present. No pneumothorax is identified. There is some densit y at the left diaphragm. Follow-up recommended IMPRESSION: 1. No pneumothorax post lobectomy. 2 right-sided chest tubes are present. 2. Small amount of increased density at the left diaphragm. Follow-up recommended. [facility], , 01/02/2025 11:45 AM
[2025-01-02] MEDS ORDERED: IPRATROPIUM-ALBUTEROL 3 ML NEB IH PRN (11:48)
[2025-01-02] MEDS ORDERED: bisacodyL 10 MG SUPP RECTAL PRN (11:48)
[2025-01-02] MEDS ORDERED: ACETAMINOPHEN TAB 325 MG TAB PO PRN (11:48)
[2025-01-02] MEDS ORDERED: ONDANSETRON 4 MG/2 ML VIAL IVP PRN (11:48)
[2025-01-02] MEDS: traMADol 50 MG TAB PO PRN (14:32)
[2025-01-02] MEDS: KETOROLAC 15 MG/ML 1 ML VIAL IVP SCH (14:43)
[2025-01-02] MEDS: IPRATROPIUM-ALBUTEROL 3 ML NEB IH SCH (15:21)
--- NOTE | 2025-01-02 16:26 | P.CNPUL ---
History of Present Illness Consult date: 01/02/25 Requesting physician: David Mcgee Reason for consult: hypoxemia Chief complaint: Lung nodule History of present illness: This is a pleasant 69-year-old male patient with a known history of coronary artery disease with previous stent placement, hyperlipidemia, hypertension, chronic obstructive pulmonary disease to 70% of predicted. He has a 50-year smoking history however quit over 5 years ago. He had a screening CT scan done in May 2024 that showed a small subcentimeter nodule with some degree of spiculation in the right upper lobe. A PET scan showed very mild uptake and no evidence of metastasis. He had undergone bronchoscopy with biopsies which were noondiagnostic in July 2024. Repeat CAT scan in November of this year revealed increase in the size of the tumor from 9 mm to 1.3 cm with some degree of speculation. The nodules and several centimeters deep in the lung parenchyma and a wedge resection was not recommended. He presented here today for a robotic assisted right upper lobe right upper lobectomy with mediastinal lymph node dissection performed by Dr. Mcgee. He is seen today in consultation in the selective care unit. He is currently sitting up in bed. Awake and alert in no acute distress. Maintaining good O2 saturations in the 90s on 4 L/min per nasal cannula. He is afebrile. Hemodynamically stable. Right sided chest tubes Y'd remain in place to Pleur-evac and wall suction. A leak is present. He is utilizing his incentive spirometer. Postop chest x-ray reveals no pneumothorax post lobectomy. Small amount of increased density at the left diaphragm. Review of Systems REVIEW OF SYSTEMS: CONSTITUTIONAL: Denies any recent significant weight loss or weight gain. EYES: Denies change in vision. EARS, NOSE, MOUTH, THROAT: Denies headaches, denies sore throat. CARDIOVASCULAR: Right sided surgical site chest pain, no palpitations or syncopal episodes. RESPIRATORY: Denies shortness of breath, cough, congestion or hemoptysis. GASTROINTESTINAL: Denies change in appetite, denies abdominal pain GENITOURINARY: Denies hematuria, denies infections. MUSKULOSKELETAL: Denies pain, denies swelling. INTEGUMENTARY: Denies rash, denies eczema. NEUROLOGICAL: Denies recent memory loss, no recent seizure activity. PSYCHIATRIC: Denies anxiety, denies depression. HEMATOLOGIC/LYMPHATIC: Denies anemia, denies enlarged lymph nodes. Past Medical History Past Medical History: Chest Pain / Angina, COPD, GERD/Reflux, Hyperlipidemia, Hypertension, Osteoarthritis (OA), Sleep Apnea/CPAP/BIPAP Additional Past Medical History / Comment(s): abdominal aortic aneurysm-Dr Hoyt. next check 2 yrs. Does not have a cpap History of Any Multi-Drug Resistant Organisms: None Reported Past Surgical History: Back Surgery, Cholecystectomy Additional Past Surgical History / Comment(s): Neck sx fusion 2017, colonoscopy polyps Past Anesthesia/Blood Transfusion Reactions: No Reported Reaction Additional Past Anesthesia/Blood Transfusion Reaction / Comment(s): no hx blood transfusion Date of Last Stent Placement:: 08/2023 Smoking Status: Former smoker - Past Family History Mother Family Medical History: COPD Sister(s) Family Medical History: Cancer Additional Family Medical History / Comment(s): lung cancer Brother(s) Family Medical History: Coronary Artery Disease (CAD) Medications and Allergies Home Medications Medication Instructions Recorded Confirmed Type Aspirin 81 mg PO DAILY 11/26/21 12/31/24 History Albuterol Sulfate [Albuterol 2 puff PO Q6H PRN 08/16/22 12/31/24 History Sulfate Hfa] Budesonide-Formot 160-4.5 Mcg 2 puff INHALATION BID 08/16/22 12/31/24 History [Symbicort 160-4.5 Mcg Inhaler] Nitroglycerin Sl Tabs [Nitrostat] 0.4 mg SUBLINGUAL Q5M PRN #25 tab 06/15/23 12/31/24 Rx Xbodoje-Vilu-Cmyz [id number] 1 tab PO DIRECTED 06/30/23 12/31/24 History [Excedrin] lisinopriL [Zestril] 20 mg PO QAM 06/30/23 12/31/24 History Allergies Allergy/AdvReac Type Severity Reaction Status Date / Time amoxicillin [From Augmentin] AdvReac Diarrhea Verified 12/31/24 08:28 clavulanic acid AdvReac Diarrhea Verified 12/31/24 08:28 [From Augmentin] Physical Exam Vitals: Vital Signs Temp Pulse Pulse Pulse Resp BP BP 01/02/25 15:39 98 01/02/25 15:23 94 01/02/25 14:28 98.3 F 104 H 18 152/79 01/02/25 13:50 93 16 124/75 01/02/25 13:30 90 16 116/75 01/02/25 12:30 87 16 109/65 01/02/25 12:15 85 14 116/66 01/02/25 12:00 84 14 113/68 01/02/25 11:56 82 16 105/59 01/02/25 11:41 82 20 131/75 01/02/25 11:26 77 20 136/79 01/02/25 11:11 78 20 134/88 01/02/25 10:56 97 F L 84 14 185/88 01/02/25 05:57 97 F L 68 20 133/79 Pulse Ox 01/02/25 15:39 01/02/25 15:23 94 L 01/02/25 14:28 93 L 01/02/25 13:50 95 01/02/25 13:30 95 01/02/25 12:30 94 L 01/02/25 12:15 94 L 01/02/25 12:00 95 01/02/25 11:56 95 01/02/25 11:41 95 01/02/25 11:26 98 01/02/25 11:11 98 01/02/25 10:56 95 01/02/25 05:57 95 Intake and Output 01/02/25 01/02/25 01/02/25 06:59 14:59 22:59 Intake Total 200 1800 Output Total 475 Balance 200 1325 Intake: IV 200 1800 Output: Urine 450 Estimated Blood Loss 25 Other: Weight 105.8 kg [id number] kg GENERAL EXAM: Alert, pleasant 69-year-old male, on 4 L nasal cannula, fairly comfortable in no apparent distress. HEAD: Normocephalic. EYES: Normal reaction of pupils, equal size. NOSE: Clear with pink turbinates. THROAT: No erythema or exudates. NECK: No masses, no JVD. CHEST: No chest wall deformity. 2 right sided chest tubes Y'd in place to Pleur-evac and wall suction. Positive leak LUNGS: Equal air entry with no crackles, wheeze, rhonchi or dullness. CVS: S1 and S2 normal with no audible murmur, regular rhythm. ABDOMEN: No hepatosplenomegaly, normal bowel sounds, no guarding or rigidity. SPINE: No scoliosis or deformity SKIN: No rashes CENTRAL NERVOUS SYSTEM: No focal deficits, tone is normal in all 4 extremities. EXTREMITIES: There is no peripheral edema. No clubbing, no cyanosis. Peripheral pulses are intact. Results - Diagnostic Findings Chest x-ray: image reviewed Assessment and Plan Assessment: Right upper lobe enlarging mass, status post robotic assisted right upper lobectomy with mediastinal lymph node dissection. Postoperative day #0 Acute hypoxemic respiratory failure secondary to above, expected outcome of thoracic surgery. Currently on oxygen at 4 L/min per nasal cannula Chronic obstructive pulmonary disease Previous history of chronic tobacco dependence Coronary artery disease with previous stent placement Hyperlipidemia Hypertension Plan: The patient was seen and evaluated Chest x-ray, labs and medications reviewed Currently stable on 4 L nasal cannula Titrate down the FiO2 as tolerated Right sided chest tubes remain in place Currently with a positive air leak Encouraged the increased use of the incentive spirometer Assure adequate pain control Continue DuoNeb inhalations, Symbicort Continue cefazolin Heparin for DVT prophylaxis Protonix for GI prophylaxis We will continue to follow and make further recommendations based on his clinical status I have personally seen and examined the patient, performed the documentation and the assessment and plan as written. Number of minutes spent on the visit: 20 Dictation was produced using [employer] dictation software. Please excuse any grammatical, word or spelling errors.
[2025-01-02] MEDS: HEPARIN SODIUM,PORCINE 5,000 UNIT/ML 1 ML VIAL SQ SCH (16:29)
[2025-01-02] MEDS: SYMBICORT 160-4.5 MCG INHALER INHALATION SCH (18:39)
[2025-01-02] MEDS: DEXTROSE 5%-0.45% NACL 1,000 ML IV SCH (19:52)
[2025-01-03] MEDS: PANTOPRAZOLE 40 MG TABLET PO SCH (06:43)
[2025-01-03 07:03] LABS: Basophils % (A) 0 %; Eosinophils # (A) 0.1 k/uL (0-0.7); Eosinophils % (A) 1 %; HCT 49.7 % (39.0-53.0); HGB 15.6 gm/dL (13.0-17.5); Lymphocytes # (A) 1.7 k/uL (1.0-4.8); Lymphocytes % (A) 13 %; MCH 31.1 pg (25.0-35.0); MCHC 31.3 g/dL (31.0-37.0); MCV 99.2 fL (80.0-100.0); Monocytes # (A) 0.9 k/uL (0-1.0); Monocytes % (A) 7 %; Neutrophils # (A) 10.4 k/uL (1.3-7.7); Neutrophils % (A) 78 %; Platelet Count 258 k/uL (150-450); RBC 5.01 m/uL (4.30-5.90); RDW 12.5 % (11.5-15.5); WBC 13.4 k/uL (3.8-10.6)
[2025-01-03 08:16] LABS: African American GFR (CKD) >90 (>60 ml/min/1.73 sqM); Anion Gap 9 mmol/L; Blood Urea Nitrogen 25 mg/dL (9-20); Calcium 9.3 mg/dL (8.4-10.2); Carbon Dioxide 24 mmol/L (22-30); Chloride 102 mmol/L (98-107); Glucose 126 mg/dL (74-99); Non-African American GFR(CKD) 88 (>60 ml/min/1.73 sqM); Potassium 4.7 mmol/L (3.5-5.1); Sodium 135 mmol/L (137-145)
--- NOTE | 2025-01-03 08:16 | XR ---
EXAMINATION TYPE: XR chest 1V DATE OF EXAM: 01/03/2025 6:41 AM COMPARISON: None. CLINICAL INDICATION: Male, 69 years old with history of post lobectomy, TECHNIQUE: XR chest 1V view(s) obtained. FINDINGS: The heart size is normal. The pulmonary vasculature is normal. There is some improvement of the infiltrate at the left base with mild residual 2 right-sided chest tubes are present. No pneumothorax is evident. There is some elevation of the right diaphragm. IMPRESSION: 1. No pneumothorax postlobectomy. 2 right-sided chest tubes present. 2. Improving left lower lobe infiltrate [facility], , 01/03/2025 8:14 AM
--- NOTE | 2025-01-03 08:26 | P.PN ---
Subjective Progress Note Date: 01/03/25 Principal diagnosis: Right upper lobe enlarging mass. Previous medical history of CAD with previous PCI, hypertension, hyperlipidemia, obstructive sleep apnea without home CPAP us e, previous tobacco dependence, COPD, GERD, osteoarthritis, abdominal aortic aneurysm being followed by Dr. Hoyt POD #1 robotic assisted right upper lobectomy with mediastinal lymph node dissection The patient was seen and examined this morning sitting up at the bedside in no acute distress. States pain is mostly controlled with current medication regimen. Remains in sinus rhythm, hemodynamically stable, currently on room air with oxygen saturation in the low to mid 90s. Right pleural chest tube remains present to continuous wall suction, 300 mL output since surgery, intermittent airleak present with expiration and coughing. Labs, chest x-ray reviewed. No other new concerns. Objective - Vital Signs Vital signs: Vital Signs Temp 98.8 F 01/03/25 03:02 Pulse 78 01/03/25 08:10 Resp 14 01/03/25 03:02 BP 127/80 01/03/25 03:02 Pulse Ox 93 L 01/03/25 08:10 FiO2 Intake & Output 01/02/25 01/03/25 01/03/25 18:59 06:59 18:59 Intake Total 1918 20 0 Output Total 475 480 500 Balance 1443 -460 -500 Weight [id number] kg 106.5 kg Intake: IV 1800 20 Invasive Line 3 20 Oral 118 0 Output: Chest Tube Drainage 50 Chest Tube Right 50 Drainage 30 Right 30 Urine 450 400 500 Estimated Blood Loss 25 Other: # Voids 2 2 - Exam CONSTITUTIONAL: Appears comfortable, cooperative, no acute distress RESPIRATORY: Lungs sounds diminished bilaterally. Respirations even, nonlabored. Currently on room air with oxygen saturation 93%. Strong nonproductive cough. CARDIOVASCULAR: S1, S2 present. Regular rate and rhythm, sinus rhythm on telemetry. Palpable peripheral pulses bilaterally. No edema present. No calf pain or tenderness noted. SCDs present. GASTROINTESTINAL: Abdomen soft, nontender, nondistended. Active bowel sounds present 4 quadrants. Tolerating diet. Denies flatus GENITOURINARY: Continues to void clear, yellow urine INTEGUMENTARY: Skin is warm and dry with evidence of good perfusion. Thoracic incision well approximated and covered with dry intact dressing. NEUROLOGIC: Cranial nerves II through XII intact MUSKULOSKELETAL: Able to move all extremities, strength equal bilaterally, gait normal PSYCHIATRIC: Alert and oriented to person place and time, appropriate affect, intact judgment and insight INVASIVE LINES AND TUBES: Right pleural chest tubes present to continuous wall suction, intermittent airleak present with expiration and coughing, 50 mL serosanguineous drainage overnight, 300 mL since surgery - Allied health notes Allied health notes reviewed: nursing - Labs CBC & Chem 7: 01/03/25 06:48 01/03/25 06:48 Labs: Abnormal Lab Results - Last 24 Hours (Table) 01/03/25 Range/Units 06:48 WBC 13.4 H (3.8-10.6) k/uL Neutrophils # 10.4 H (1.3-7.7) k/uL - Imaging and Cardiology Chest x-ray: report reviewed, image reviewed Assessment and Plan Assessment: Right upper lobe enlarging mass, status post robotic assisted right upper lobectomy with mediastinal lymph node dissection History of CAD with previous PCI Hypertension Hyperlipidemia Obstructive sleep apnea without home CPAP use Previous tobacco dependence COPD GERD Osteoarthritis Abdominal aortic aneurysm being followed by Dr. Hoyt Plan: Continue chest tubes to continuous wall suction, monitor for airleak resolution Incentive spirometer ordered and should be encouraged Increase activity as tolerated Pain control per current medication regimen GI/DVT prophylaxis Home medications Will monitor daily labs and x-rays, final pathology pending More recommendations to follow
[2025-01-03] MEDS: ASPIRIN 81 MG PO SCH (08:41)
[2025-01-03] MEDS: lisinopriL 20 MG TAB PO SCH (08:41)
[2025-01-03] MEDS ORDERED: MAGNESIUM HYDROXIDE 2,400 MG/30 ML CUP PO PRN (13:01)
[2025-01-03] MEDS: SENNOSIDES-DOCUSATE SODIUM 1 EACH TAB PO SCH (14:02)
--- NOTE | 2025-01-03 15:19 | P.PN ---
Subjective Progress Note Date: 01/03/25 Principal diagnosis: POD #1 robotic assisted right upper lobectomy with mediastinal lymph node dissection This is a pleasant 69-year-old male patient with a known history of coronary artery disease with previous stent placement, hyperlipidemia, hypertension, chronic obstructive pulmonary disease to 70% of predicted. He has a 50-year smoking history however quit over 5 years ago. He had a screening CT scan done in May 2024 that showed a small subcentimeter nodule with some degree of spiculation in the right upper lobe. A PET scan showed very mild uptake and no evidence of metastasis. He had undergone bronchoscopy with biopsies which were noondiagnostic in July 2024. Repeat CAT scan in November of this year revealed increase in the size of the tumor from 9 mm to 1.3 cm with some degree of speculation. The nodules and several centimeters deep in the lung parenchyma and a wedge resection was not recommended. He presented here today for a robotic assisted right upper lobe right upper lobectomy with mediastinal lymph node dissection performed by Dr. Mcgee. He is seen today in consultation in the selective care unit. He is currently sitting up in bed. Awake and alert in no acute distress. Maintaining good O2 saturations in the 90s on 4 L/min per nasal cannula. He is afebrile. Hemodynamically stable. Right sided chest tubes Y'd remain in place to Pleur-evac and wall suction. A leak is present. He is utilizing his incentive spirometer. Postop chest x-ray reveals no pneumothorax post lobectomy. Small amount of increased density at the left diaphragm. Patient was seen today on 01/03/2025, patient is doing great, sitting up in bed, not in any distress, he is on room air, O2 saturation in the low 90s. Right- sided chest tube is noted, on continuous wall suction, had 300 mL of output since his surgery, denies any cough or wheezing denies any shortness of breath. WBC count is 13.4 hemoglobin is 15.6 electrolytes are normal renal profile is normal chest x-ray showed no evidence of pneumothorax, chest tubes in proper position. Minimal left basilar atelectasis Objective - Vital Signs Vital signs: Vital Signs Temp 98.3 F 01/03/25 11:22 Pulse 67 01/03/25 12:09 Resp 14 01/03/25 11:22 BP 131/76 01/03/25 11:22 Pulse Ox 97 01/03/25 11:22 FiO2 Intake & Output 01/02/25 01/03/25 01/03/25 18:59 06:59 18:59 Intake Total 1918 20 0 Output Total 475 480 500 Balance 1443 -460 -500 Weight [id number] kg 106.5 kg Intake: IV 1800 20 Invasive Line 3 20 Oral 118 0 Output: Chest Tube Drainage 50 0 Chest Tube Right 50 0 Drainage 30 Right 30 Urine 450 400 500 Estimated Blood Loss 25 Other: Voiding Method Urinal # Voids 2 2 - Exam GENERAL EXAM: 69-year-old white male in no distress on room air HEAD: Normocephalic. EYES: Normal reaction of pupils, equal size. NOSE: Clear with pink turbinates. THROAT: No erythema or exudates. NECK: No masses, no JVD. CHEST: No chest wall deformity. 2 right sided chest tubes Y'd in place to Pleur-evac and wall suction. LUNGS: Equal air entry with no crackles, wheeze, rhonchi or dullness. CVS: S1 and S2 normal with no audible murmur, regular rhythm. ABDOMEN: No hepatosplenomegaly, normal bowel sounds, no guarding or rigidity. SKIN: No rashes CENTRAL NERVOUS SYSTEM: Alert oriented x 3 no gross focal deficit EXTREMITIES: No clubbing edema or cyanosis - Labs CBC & Chem 7: 01/03/25 06:48 01/03/25 06:48 Labs: Abnormal Lab Results - Last 24 Hours (Table) 01/03/25 01/03/25 Range/Units 06:48 06:48 WBC 13.4 H (3.8-10.6) k/uL Neutrophils # 10.4 H (1.3-7.7) k/uL Sodium 135 L (137-145) mmol/L BUN 25 H (9-20) mg/dL Glucose 126 H (74-99) mg/dL Assessment and Plan Assessment: impression: Right upper lobe enlarging mass, status post robotic assisted right upper lobectomy with mediastinal lymph node dissection. Postoperative day #1 Chronic obstructive pulmonary disease Previous history of chronic tobacco dependence Coronary artery disease with previous stent placement Hyperlipidemia Hypertension Plan: Continue present supportive care measures continue incentive spirometry Continue chest tube to suction Ambulate as tolerated Continue Symbicort and DuoNeb Continue GI DVT prophylaxis Monitor O2 and daily labs monitor daily x-rays of the chest Will continue to follow Time with Patient: Less than 30
[2025-01-03] MEDS: SODIUM CHLORIDE 0.65% NASAL SPRAY 44 ML BTL NASAL PRN (16:27)
[2025-01-04 07:34] LABS: HGB 15.2 gm/dL (13.0-17.5); MCH 30.7 pg (25.0-35.0); MCHC 31.1 g/dL (31.0-37.0); MCV 98.9 fL (80.0-100.0); Mean Platelet Volume 8.3; Platelet Count 265 k/uL (150-450); RBC 4.95 m/uL (4.30-5.90); RDW 12.5 % (11.5-15.5)
[2025-01-04 07:48] LABS: African American GFR (CKD) >90 (>60 ml/min/1.73 sqM); Anion Gap 11 mmol/L; Blood Urea Nitrogen 24 mg/dL (9-20); Calcium 9.6 mg/dL (8.4-10.2); Carbon Dioxide 25 mmol/L (22-30); Chloride 100 mmol/L (98-107); Glucose 107 mg/dL (74-99); Non-African American GFR(CKD) >90 (>60 ml/min/1.73 sqM); Sodium 136 mmol/L (137-145)
[2025-01-04 08:00] LABS: Potassium 4.4 mmol/L (3.5-5.1)
--- NOTE | 2025-01-04 08:44 | P.PN ---
Subjective Progress Note Date: 01/04/25 Principal diagnosis: Right upper lobe enlarging mass. Previous medical history of CAD with previous PCI, hypertension, hyperlipidemia, obstructive sleep apnea without home CPAP us e, previous tobacco dependence, COPD, GERD, osteoarthritis, abdominal aortic aneurysm being followed by Dr. Hoyt POD #2 robotic assisted right upper lobectomy with mediastinal lymph node dissection The patient was seen and examined this morning sitting up at the bedside in no acute distress. States pain is mostly controlled with current medication regimen. Remains in sinus rhythm, hemodynamically stable, currently on room air with oxygen saturation in the low to mid 90s. Right pleural chest tube remains present to continuous wall suction, 100 mL in the last 24 hours, intermittent airleak present with expiration and coughing. Labs, chest x-ray reviewed. No other new concerns. Objective - Vital Signs Vital signs: Vital Signs Temp 98.3 F 01/04/25 04:00 Pulse 76 01/04/25 04:00 Resp 14 01/04/25 04:00 BP 133/86 01/04/25 04:00 Pulse Ox 94 L 01/04/25 08:36 FiO2 Intake & Output 01/03/25 01/04/25 01/04/25 18:59 06:59 18:59 Intake Total 240 Output Total 810 760 Balance -570 -760 Weight 104.5 kg Intake: Oral 240 Output: Chest Tube Drainage 60 60 Chest Tube Right 60 60 Urine 750 700 Other: Voiding Method Urinal Urinal # Voids 2 - Exam CONSTITUTIONAL: Appears comfortable, cooperative, no acute distress RESPIRATORY: Lungs sounds diminished bilaterally. Respirations even, nonlabored. Currently on room air with oxygen saturation 92%. Able to achieve 1250 mL on his incentive spirometry. Strong nonproductive cough. CARDIOVASCULAR: S1, S2 present. Regular rate and rhythm, sinus rhythm on telemetry. Palpable peripheral pulses bilaterally. No edema present. No calf pain or tenderness noted. SCDs present. GASTROINTESTINAL: Abdomen soft, nontender, nondistended. Active bowel sounds present 4 quadrants. Tolerating diet. Positive flatus GENITOURINARY: Continues to void clear, yellow urine INTEGUMENTARY: Skin is warm and dry with evidence of good perfusion. Thoracic incision well approximated and covered with dry intact dressing. NEUROLOGIC: Cranial nerves II through XII intact MUSKULOSKELETAL: Able to move all extremities, strength equal bilaterally, gait normal PSYCHIATRIC: Alert and oriented to person place and time, appropriate affect, intact judgment and insight INVASIVE LINES AND TUBES: Right pleural chest tubes present to waterseal, intermittent airleak present with expiration and coughing, 100 mL serosanguineous drainage in the last 24 hours - Allied health notes Allied health notes reviewed: nursing - Labs CBC & Chem 7: 01/04/25 06:07 01/04/25 06:07 Labs: Abnormal Lab Results - Last 24 Hours (Table) 01/04/25 01/04/25 Range/Units 06:07 06:07 WBC 11.0 H (3.8-10.6) k/uL Sodium 136 L (137-145) mmol/L BUN 24 H (9-20) mg/dL Glucose 107 H (74-99) mg/dL - Imaging and Cardiology Chest x-ray: image reviewed Assessment and Plan Assessment: Right upper lobe enlarging mass, status post robotic assisted right upper lobe ctomy with mediastinal lymph node dissection History of CAD with previous PCI Hypertension Hyperlipidemia Obstructive sleep apnea without home CPAP use Previous tobacco dependence COPD GERD Osteoarthritis Abdominal aortic aneurysm being followed by Dr. Hoyt Plan: Continue chest tubes to continuous wall suction, monitor for airleak resolution Incentive spirometer ordered and should be encouraged Increase activity as tolerated Pain control per current medication regimen GI/DVT prophylaxis Home medications Will monitor daily labs and x-rays, final pathology pending More recommendations to follow
--- NOTE | 2025-01-04 14:08 | P.PN ---
Subjective Progress Note Date: 01/04/25 Principal diagnosis: POD #2 robotic assisted right upper lobectomy with mediastinal lymph node dissection This is a pleasant 69-year-old male patient with a known history of coronary artery disease with previous stent placement, hyperlipidemia, hypertension, chronic obstructive pulmonary disease to 70% of predicted. He has a 50-year smoking history however quit over 5 years ago. He had a screening CT scan done in May 2024 that showed a small subcentimeter nodule with some degree of spiculation in the right upper lobe. A PET scan showed very mild uptake and no evidence of metastasis. He had undergone bronchoscopy with biopsies which were noondiagnostic in July 2024. Repeat CAT scan in November of this year revealed increase in the size of the tumor from 9 mm to 1.3 cm with some degree of speculation. The nodules and several centimeters deep in the lung parenchyma and a wedge resection was not recommended. He presented here today for a robotic assisted right upper lobe right upper lobectomy with mediastinal lymph node dissection performed by Dr. Mcgee. He is seen today in consultation in the selective care unit. He is currently sitting up in bed. Awake and alert in no acute distress. Maintaining good O2 saturations in the 90s on 4 L/min per nasal cannula. He is afebrile. Hemodynamically stable. Right sided chest tubes Y'd remain in place to Pleur-evac and wall suction. A leak is present. He is utilizing his incentive spirometer. Postop chest x-ray reveals no pneumothorax post lobectomy. Small amount of increased density at the left diaphragm. Patient was seen today on 01/03/2025, patient is doing great, sitting up in bed, not in any distress, he is on room air, O2 saturation in the low 90s. Right- sided chest tube is noted, on continuous wall suction, had 300 mL of output since his surgery, denies any cough or wheezing denies any shortness of breath. WBC count is 13.4 hemoglobin is 15.6 electrolytes are normal renal profile is normal chest x-ray showed no evidence of pneumothorax, chest tubes in proper position. Minimal left basilar atelectasis Seen today on 01/04/2025, patient is now postoperative day #2, doing great, patient had robotic assisted right upper lobectomy with mediastinal lymph node dissection, right-sided chest tube remains in place, on wall suction, continues to have small intermittent airleak. Clinically the patient is asymptomatic, pain is under control, no shortness of breath, compliant with his incentive spirometry. WBC count today is 11 hemoglobin 15.2 electrolytes are normal and renal profile is normal Objective - Vital Signs Vital signs: Vital Signs Temp 98.3 F 01/04/25 04:00 Pulse 76 01/04/25 08:30 Resp 16 01/04/25 08:30 BP 136/74 01/04/25 08:30 Pulse Ox 94 L 01/04/25 08:36 FiO2 Intake & Output 01/03/25 01/04/25 01/04/25 18:59 06:59 18:59 Intake Total 240 472 Output Total 810 760 Balance -570 -760 472 Weight 104.5 kg Intake: Oral 240 472 Output: Chest Tube Drainage 60 60 Chest Tube Right 60 60 Urine 750 700 Other: Voiding Method Urinal Urinal Urinal # Voids 2 - Exam GENERAL EXAM: 69-year-old white male in no distress on room air HEAD: Normocephalic. EYES: Normal reaction of pupils, equal size. NOSE: Clear with pink turbinates. THROAT: No erythema or exudates. NECK: No masses, no JVD. CHEST: No chest wall deformity. Right-sided chest tube noted, intermittent airleak noted in the Pleur-evac LUNGS: Equal air entry with no crackles, wheeze, rhonchi or dullness. CVS: S1 and S2 normal with no audible murmur, regular rhythm. ABDOMEN: No hepatosplenomegaly, normal bowel sounds, no guarding or rigidity. SKIN: No rashes CENTRAL NERVOUS SYSTEM: Alert oriented x 3 no gross focal deficit EXTREMITIES: No clubbing edema or cyanosis - Labs CBC & Chem 7: 01/04/25 06:07 01/04/25 06:07 Labs: Abnormal Lab Results - Last 24 Hours (Table) 01/04/25 01/04/25 Range/Units 06:07 06:07 WBC 11.0 H (3.8-10.6) k/uL Sodium 136 L (137-145) mmol/L BUN 24 H (9-20) mg/dL Glucose 107 H (74-99) mg/dL Assessment and Plan Assessment: impression: Right upper lobe enlarging mass, status post robotic assisted right upper lobectomy with mediastinal lymph node dissection. Postoperative day #2 Chronic obstructive pulmonary disease Previous history of chronic tobacco dependence Coronary artery disease with previous stent placement Hyperlipidemia Hypertension Plan: Chest x-ray is reassuring Continue present supportive care measures Continue chest tube to suction continue incentive spirometry Ambulate as tolerated Continue Symbicort and DuoNeb Continue GI DVT prophylaxis Titrate FiO2 accordingly daily labs monitor daily x-rays of the chest Will continue to follow Time with Patient: Less than 30
[2025-01-05 07:06] LABS: HCT 45.9 % (39.0-53.0); HGB 14.8 gm/dL (13.0-17.5); MCHC 32.1 g/dL (31.0-37.0); MCV 99.5 fL (80.0-100.0); Mean Platelet Volume 8.4; Platelet Count 245 k/uL (150-450); RBC 4.62 m/uL (4.30-5.90); RDW 12.6 % (11.5-15.5); WBC 9.7 k/uL (3.8-10.6)
[2025-01-05 07:15] LABS: Potassium 4.6 mmol/L (3.5-5.1)
--- NOTE | 2025-01-05 07:37 | P.PN ---
Subjective Progress Note Date: 01/05/25 Principal diagnosis: Right upper lobe enlarging mass. Previous medical history of CAD with previous PCI, hypertension, hyperlipidemia, obstructive sleep apnea without home CPAP us e, previous tobacco dependence, COPD, GERD, osteoarthritis, abdominal aortic aneurysm being followed by Dr. Hoyt POD #3 robotic assisted right upper lobectomy with mediastinal lymph node dissection The patient was seen and examined this morning sitting up in recliner on the cardiac stepdown unit in no acute distress eating breakfast. States pain is controlled with current medication regimen, he is not taking the maximum dose ordered. Remains in sinus rhythm, hemodynamically stable, currently on room air with oxygen saturation in the low to mid 90s. Right pleural chest tube remains present to waterseal, 150 mL in the last 24 hours, intermittent airleak present with coughing only. Labs, chest x-ray reviewed. Patient has been ambulatory without difficulty. No other new concerns. Objective - Vital Signs Vital signs: Vital Signs Temp 97.1 F L 01/05/25 03:11 Pulse 81 01/05/25 03:11 Resp 16 01/05/25 03:11 BP 140/86 01/05/25 03:11 Pulse Ox 91 L 01/05/25 03:11 FiO2 Intake & Output 01/04/25 01/05/25 01/05/25 18:59 06:59 18:59 Intake Total 712 Output Total 370 550 Balance 342 -550 Weight 105 kg Intake: Oral 712 Output: Chest Tube Drainage 70 50 Chest Tube Right 70 50 Urine 300 500 Other: Voiding Method Urinal Urinal - Exam CONSTITUTIONAL: Appears comfortable, cooperative, no acute distress RESPIRATORY: Lungs sounds diminished bilaterally. Respirations even, nonlabored. Currently on room air with oxygen saturation 92%. Able to achieve 1500 mL on his incentive spirometry. Strong nonproductive cough. CARDIOVASCULAR: S1, S2 present. Regular rate and rhythm, sinus rhythm on t elemetry. Palpable peripheral pulses bilaterally. No edema present. No calf pain or tenderness noted. SCDs present. GASTROINTESTINAL: Abdomen soft, nontender, nondistended. Active bowel sounds p resent 4 quadrants. Tolerating diet. Positive flatus GENITOURINARY: Continues to void clear, yellow urine INTEGUMENTARY: Skin is warm and dry with evidence of good perfusion. Thoracic incision well approximated and covered with dry intact dressing. NEUROLOGIC: Cranial nerves II through XII intact MUSKULOSKELETAL: Able to move all extremities, strength equal bilaterally, gait normal PSYCHIATRIC: Alert and oriented to person place and time, appropriate affect, intact judgment and insight INVASIVE LINES AND TUBES: Right pleural chest tubes present to waterseal, intermittent airleak present with coughing, 150 mL serosanguineous drainage in the last 24 hours - Allied health notes Allied health notes reviewed: nursing - Labs CBC & Chem 7: 01/05/25 05:47 01/05/25 05:47 Labs: Abnormal Lab Results - Last 24 Hours (Table) 01/04/25 01/04/25 Range/Units 06:07 06:07 WBC 11.0 H (3.8-10.6) k/uL Sodium 136 L (137-145) mmol/L BUN 24 H (9-20) mg/dL Glucose 107 H (74-99) mg/dL - Imaging and Cardiology Chest x-ray: image reviewed Assessment and Plan Assessment: Right upper lobe enlarging mass, status post robotic assisted right upper lobectomy with mediastinal lymph node dissection History of CAD with previous PCI Hypertension Hyperlipidemia Obstructive sleep apnea without home CPAP use Previous tobacco dependence COPD GERD Osteoarthritis Abdominal aortic aneurysm being followed by Dr. Hoyt Plan: Continue chest tubes to waterseal, monitor for airleak resolution Encourage continued incentive spirometer use Increase activity, ambulate as tolerated Pain control per current medication regimen GI/DVT prophylaxis Home medications Will monitor daily labs and x-rays, final pathology pending More recommendations to follow
[2025-01-05 07:38] LABS: African American GFR (CKD) >90 (>60 ml/min/1.73 sqM); Anion Gap 7 mmol/L; Blood Urea Nitrogen 27 mg/dL (9-20); Calcium 9.4 mg/dL (8.4-10.2); Carbon Dioxide 29 mmol/L (22-30); Chloride 102 mmol/L (98-107); Glucose 116 mg/dL (74-99); Non-African American GFR(CKD) >90 (>60 ml/min/1.73 sqM); Sodium 138 mmol/L (137-145)
--- NOTE | 2025-01-05 07:47 | XR ---
EXAMINATION TYPE: XR chest 2V DATE OF EXAM: 01/05/2025 6:23 AM COMPARISON: Multiple radiographs, with the most recent on 01/04/2025. TECHNIQUE: XR chest 2V Frontal and lateral views of the chest. CLINICAL INDICATION:Male, 69 years old with history of post lobectomy; FINDINGS: Lungs/Pleura: No pleural effusion. Redemonstration of elevation of the right hemidiaphragm. Small rig ht apical pneumothorax. No focal consolidation. Pulmonary vascularity: Unremarkable. Heart/mediastinum: Cardiomediastinal silhouette is unremarkable. Atherosclerotic calcifications are seen in the aorta. Musculoskeletal: No acute osseous pathology. Cervical fusion hardware. Other findings: None Lines/Tubes: Stable 2 right-sided chest tubes directed towards the lung apex. IMPRESSION: Post lobectomy changes with development of a small right apical pneumothorax. Stable position of 2 ri ght-sided chest tubes. [facility], , 01/05/2025 7:45 AM
--- NOTE | 2025-01-05 13:44 | P.PN ---
Subjective Progress Note Date: 01/05/25 Principal diagnosis: POD #3 robotic assisted right upper lobectomy with mediastinal lymph node dissection This is a pleasant 69-year-old male patient with a known history of coronary artery disease with previous stent placement, hyperlipidemia, hypertension, chronic obstructive pulmonary disease to 70% of predicted. He has a 50-year smoking history however quit over 5 years ago. He had a screening CT scan done in May 2024 that showed a small subcentimeter nodule with some degree of spiculation in the right upper lobe. A PET scan showed very mild uptake and no evidence of metastasis. He had undergone bronchoscopy with biopsies which were noondiagnostic in July 2024. Repeat CAT scan in November of this year revealed increase in the size of the tumor from 9 mm to 1.3 cm with some degree of speculation. The nodules and several centimeters deep in the lung parenchyma and a wedge resection was not recommended. He presented here today for a robotic assisted right upper lobe right upper lobectomy with mediastinal lymph node dissection performed by Dr. Mcgee. He is seen today in consultation in the selective care unit. He is currently sitting up in bed. Awake and alert in no acute distress. Maintaining good O2 saturations in the 90s on 4 L/min per nasal cannula. He is afebrile. Hemodynamically stable. Right sided chest tubes Y'd remain in place to Pleur-evac and wall suction. A leak is present. He is utilizing his incentive spirometer. Postop chest x-ray reveals no pneumothorax post lobectomy. Small amount of increased density at the left diaphragm. Patient was seen today on 01/03/2025, patient is doing great, sitting up in bed, not in any distress, he is on room air, O2 saturation in the low 90s. Right- sided chest tube is noted, on continuous wall suction, had 300 mL of output since his surgery, denies any cough or wheezing denies any shortness of breath. WBC count is 13.4 hemoglobin is 15.6 electrolytes are normal renal profile is normal chest x-ray showed no evidence of pneumothorax, chest tubes in proper position. Minimal left basilar atelectasis Seen today on 01/04/2025, patient is now postoperative day #2, doing great, patient had robotic assisted right upper lobectomy with mediastinal lymph node dissection, right-sided chest tube remains in place, on wall suction, continues to have small intermittent airleak. Clinically the patient is asymptomatic, pain is under control, no shortness of breath, compliant with his incentive spirometry. WBC count today is 11 hemoglobin 15.2 electrolytes are normal and renal profile is normal Seen today on , patient is now postoperative day #3, he had an assisted right upper lobectomy and mediastinal lymph node dissection. Patient is doing well, chest x-ray was reviewed and he continues to have right pleural chest tube in place, is on waterseal. Intermittent air leak was noted. Patient has been ambulating without difficulty. Labs were reviewed WBC count is 9.7 hemoglobin 14.8 electrolytes are normal renal profile is normal Objective - Vital Signs Vital signs: Vital Signs Temp 98.0 F 01/05/25 08:30 Pulse 84 01/05/25 12:00 Resp 16 01/05/25 12:00 BP 143/91 01/05/25 12:00 Pulse Ox 95 01/05/25 12:00 FiO2 Intake & Output 01/04/25 01/05/25 01/05/25 18:59 06:59 18:59 Intake Total 712 236 Output Total 370 550 Balance 342 -550 236 Weight 105 kg Intake: Oral 712 236 Output: Chest Tube Drainage 70 50 Chest Tube Right 70 50 Urine 300 500 Other: Voiding Method Urinal Urinal Urinal - Exam Patient was not examined as he was on the commode. - Labs CBC & Chem 7: 01/05/25 05:47 01/05/25 05:47 Labs: Abnormal Lab Results - Last 24 Hours (Table) 01/05/25 Range/Units 05:47 BUN 27 H (9-20) mg/dL Glucose 116 H (74-99) mg/dL Assessment and Plan Assessment: impression: Right upper lobe enlarging mass, status post robotic assisted right upper lobectomy with mediastinal lymph node dissection. Postoperative day #3 Chronic obstructive pulmonary disease Previous history of chronic tobacco dependence Coronary artery disease with previous stent placement Hyperlipidemia Hypertension Plan: Reviewed chest x-ray, there is a small tiny apical pneumothorax in spite of a chest tube in place Reviewed labs Continue chest tube, continues to have airleak continue incentive spirometry Ambulate as tolerated Continue Symbicort and DuoNeb Continue GI DVT prophylaxis Will continue to follow Time with Patient: Less than 30
[2025-01-06 06:46] LABS: HCT 46.9 % (39.0-53.0); HGB 14.5 gm/dL (13.0-17.5); MCH 30.4 pg (25.0-35.0); MCHC 30.9 g/dL (31.0-37.0); MCV 98.6 fL (80.0-100.0); Mean Platelet Volume 8.7; Platelet Count 292 k/uL (150-450); RBC 4.76 m/uL (4.30-5.90); WBC 10.9 k/uL (3.8-10.6)
[2025-01-06 07:16] LABS: African American GFR (CKD) >90 (>60 ml/min/1.73 sqM); Anion Gap 8 mmol/L; Blood Urea Nitrogen 23 mg/dL (9-20); Calcium 9.3 mg/dL (8.4-10.2); Carbon Dioxide 29 mmol/L (22-30); Chloride 102 mmol/L (98-107); Glucose 114 mg/dL (74-99); Non-African American GFR(CKD) >90 (>60 ml/min/1.73 sqM); Potassium 4.3 mmol/L (3.5-5.1); Sodium 139 mmol/L (137-145)
--- NOTE | 2025-01-06 07:41 | P.PN ---
Subjective Progress Note Date: 01/06/25 Principal diagnosis: Right upper lobe enlarging mass. Previous medical history of CAD with previous PCI, hypertension, hyperlipidemia, obstructive sleep apnea without home CPAP us e, previous tobacco dependence, COPD, GERD, osteoarthritis, abdominal aortic aneurysm being followed by Dr. Hoyt POD #4 robotic assisted right upper lobectomy with mediastinal lymph node dissection The patient was seen and examined this morning sitting up in recliner on the cardiac stepdown unit in no acute distress eating breakfast. States pain is controlled with current medication regimen. Remains in sinus rhythm, hemodynamically stable, currently on room air with oxygen saturation in the low to mid 90s. Right pleural chest tube remains present to waterseal, 120 mL in the last 24 hours, still has intermittent airleak present with coughing. Labs, chest x-ray reviewed. Patient has been ambulatory without difficulty. No other new concerns. Objective - Vital Signs Vital signs: Vital Signs Temp 98.3 F 01/06/25 04:00 Pulse 91 01/06/25 04:00 Resp 18 01/06/25 04:00 BP 150/88 01/06/25 04:00 Pulse Ox 93 L 01/06/25 04:00 FiO2 Intake & Output 01/05/25 01/06/25 01/06/25 18:59 06:59 18:59 Intake Total 236 10 Output Total 695 Balance 236 -685 Weight 102.6 kg Intake: IV 10 0.9 10 Oral 236 Output: Chest Tube Drainage 120 Chest Tube Right 120 Urine 575 Other: Voiding Method Urinal Urinal # Voids 2 1 - Exam CONSTITUTIONAL: Appears comfortable, cooperative, no acute distress RESPIRATORY: Lungs sounds diminished bilaterally. Respirations even, nonlabored. Currently on room air with oxygen saturation 93%. Able to achieve 1500 mL on his incentive spirometry. Strong nonproductive cough. CARDIOVASCULAR: S1, S2 present. Regular rate and rhythm, sinus rhythm on telemetry. Palpable peripheral pulses bilaterally. No edema present. No calf pain or tenderness noted. SCDs present. GASTROINTESTINAL: Abdomen soft, nontender, nondistended. Active bowel sounds present 4 quadrants. Tolerating diet. Positive flatus GENITOURINARY: Continues to void clear, yellow urine INTEGUMENTARY: Skin is warm and dry with evidence of good perfusion. Thoracic incision well approximated and covered with dry intact dressing. NEUROLOGIC: Cranial nerves II through XII intact MUSKULOSKELETAL: Able to move all extremities, strength equal bilaterally, gait normal PSYCHIATRIC: Alert and oriented to person place and time, appropriate affect, intact judgment and insight INVASIVE LINES AND TUBES: Right pleural chest tubes present to waterseal, intermittent airleak present with coughing, 120 mL serosanguineous drainage in the last 24 hours - Allied health notes Allied health notes reviewed: nursing - Labs CBC & Chem 7: 01/06/25 05:52 01/06/25 05:52 Labs: Abnormal Lab Results - Last 24 Hours (Table) 01/05/25 01/06/25 01/06/25 Range/Units 05:47 05:52 05:52 WBC 10.9 H (3.8-10.6) k/uL MCHC 30.9 L (31.0-37.0) g/dL BUN 27 H 23 H (9-20) mg/dL Glucose 116 H 114 H (74-99) mg/dL - Imaging and Cardiology Chest x-ray: image reviewed Assessment and Plan Assessment: Right upper lobe enlarging mass, status post robotic assisted right upper lob ectomy with mediastinal lymph node dissection History of CAD with previous PCI Hypertension Hyperlipidemia Obstructive sleep apnea without home CPAP use Previous tobacco dependence COPD GERD Osteoarthritis Abdominal aortic aneurysm being followed by Dr. Hoyt Plan: Continue chest tubes to waterseal, monitor for airleak resolution Encourage continued incentive spirometer use Increase activity, ambulate as tolerated Pain control per current medication regimen GI/DVT prophylaxis Home medications Will monitor daily labs and x-rays, final pathology pending More recommendations to follow
[2025-01-06] MEDS: METOPROLOL TARTRATE 25 MG TAB PO SCH (07:43)
[2025-01-06] MEDS: MAGNESIUM HYDROXIDE 2,400 MG/30 ML CUP PO STA (07:43)
--- NOTE | 2025-01-06 07:51 | XR ---
EXAMINATION TYPE: XR chest 2V DATE OF EXAM: 01/06/2025 6:21 AM COMPARISON: Multiple radiographs, with the most recent on 01/05/2025 TECHNIQUE: XR chest 2V Frontal and lateral views of the chest. CLINICAL INDICATION:Male, 69 years old with history of Post right upper lobectomy; FINDINGS: Lungs/Pleura: No pleural effusion. Redemonstration of elevation of the right hemidiaphragm. Small rig ht apical pneumothorax is unchanged. No focal consolidation. Pulmonary vascularity: Prominence of the central pulmonary vasculature. Heart/mediastinum: Cardiomediastinal silhouette is unremarkable. Atherosclerotic calcifications are seen in the aorta. Musculoskeletal: No acute osseous pathology. Cervical fusion hardware. Other findings: None Lines/Tubes: Stable 2 right-sided chest tubes directed towards the lung apex. IMPRESSION: Post lobectomy changes with stable small right apical pneumothorax. Stable position of 2 right-sided chest tubes. [facility], , 01/06/2025 7:49 AM
--- NOTE | 2025-01-06 10:39 | XR ---
EXAMINATION TYPE: XR chest 2V DATE OF EXAM: 01/04/2025 6:43 AM COMPARISON: Chest radiographs from 01/03/2025, CT chest 11/14/2024 TECHNIQUE: XR chest 2V Frontal and lateral views of the chest. CLINICAL INDICATION:Male, 69 years old with history of post lobectomy; FINDINGS: Lungs/Pleura: No pleural effusion. Redemonstration of elevation of the right hemidiaphragm. No sizabl e pneumothorax. Left basilar atelectasis. Pulmonary vascularity: Unremarkable. Heart/mediastinum: Cardiomediastinal silhouette is unremarkable. Atherosclerotic calcifications are seen in the aorta. Musculoskeletal: No acute osseous pathology. Cervical fusion hardware. Other findings: None Lines/Tubes: Stable 2 right-sided chest tubes directed towards the lung apex. IMPRESSION: 1. Postlobectomy changes without sizable pneumothorax. Stable position of 2 right-sided chest tubes. 2. Left basilar atelectasis. [facility], , 01/04/2025 7:25 AM
--- NOTE | 2025-01-06 13:59 | P.PN ---
Subjective Progress Note Date: 01/06/25 Principal diagnosis: Right upper lobectomy. This is a pleasant 69-year-old male patient with a known history of coronary artery disease with previous stent placement, hyperlipidemia, hypertension, chronic obstructive pulmonary disease to 70% of predicted. He has a 50-year smoking history however quit over 5 years ago. He had a screening CT scan done in May 2024 that showed a small subcentimeter nodule with some degree of spiculation in the right upper lobe. A PET scan showed very mild uptake and no evidence of metastasis. He had undergone bronchoscopy with biopsies which were noondiagnostic in July 2024. Repeat CAT scan in November of this year revealed increase in the size of the tumor from 9 mm to 1.3 cm with some degree of speculation. The nodules and several centimeters deep in the lung parenchyma and a wedge resection was not recommended. He presented here today for a robotic assisted right upper lobe right upper lobectomy with mediastinal lymph node dissection performed by Dr. Mcgee. He is seen today in consultation in the selective care unit. He is currently sitting up in bed. Awake and alert in no acute distress. Maintaining good O2 saturations in the 90s on 4 L/min per nasal cannula. He is afebrile. Hemodynamically stable. Right sided chest tubes Y'd remain in place to Pleur-evac and wall suction. A leak is present. He is utilizing his incentive spirometer. Postop chest x-ray reveals no pneumothorax post lobectomy. Small amount of increased density at the left diaphragm. Patient was seen today on 01/03/2025, patient is doing great, sitting up in bed, not in any distress, he is on room air, O2 saturation in the low 90s. Right- sided chest tube is noted, on continuous wall suction, had 300 mL of output since his surgery, denies any cough or wheezing denies any shortness of breath. WBC count is 13.4 hemoglobin is 15.6 electrolytes are normal renal profile is normal chest x-ray showed no evidence of pneumothorax, chest tubes in proper position. Minimal left basilar atelectasis Seen today on 01/04/2025, patient is now postoperative day #2, doing great, patient had robotic assisted right upper lobectomy with mediastinal lymph node dissection, right-sided chest tube remains in place, on wall suction, continues to have small intermittent airleak. Clinically the patient is asymptomatic, pain is under control, no shortness of breath, compliant with his incentive spirometry. WBC count today is 11 hemoglobin 15.2 electrolytes are normal and renal profile is normal Seen today on , patient is now postoperative day #3, he had an assisted right upper lobectomy and mediastinal lymph node dissection. Patient is doing well, chest x-ray was reviewed and he continues to have right pleural chest tube in place, is on waterseal. Intermittent air leak was noted. Patient has been ambulating without difficulty. Labs were reviewed WBC count is 9.7 hemoglobin 14.8 electrolytes are normal renal profile is normal Progress note dated January 06, 2025. This is a 69-year-old male postop day #4, status post robotically assisted right upper lobectomy with mediastinal lymph node dissection. Currently, the patient is seen in room 354. He is on room air. He is doing well, without complaints. Current laboratory data includes a white count of 10.9, hemoglobin 14.5, hematocrit 46.9, and platelet count 292,000. Sodium 139, potassium 4.3, chlorides 102, CO2 29, BUN 23, and creatinine 0.75. Glucose is 114. Calcium is 9.3. Chest x-ray reveals a small right apical pneumothorax, and chest tubes still in place. Objective - Vital Signs Vital signs: Vital Signs Temp 97.7 F 01/06/25 08:00 Pulse 66 01/06/25 11:56 Resp 17 01/06/25 11:56 BP 114/73 01/06/25 11:56 Pulse Ox 95 01/06/25 11:56 FiO2 Intake & Output 01/05/25 01/06/25 01/06/25 18:59 06:59 18:59 Intake Total 236 10 660 Output Total 695 250 Balance 236 -685 410 Weight 102.6 kg Intake: IV 10 0.9 10 Oral 236 660 Output: Chest Tube Drainage 120 40 Chest Tube Right 120 40 Drainage 0 Right 0 Urine 575 210 Other: Voiding Method Urinal Urinal Urinal # Voids 2 1 2 # Bowel Movements 1 - Exam No acute distress, oriented 3. HEENT examination is grossly unremarkable. Mucous membranes are moist. No oral lesions. Neck supple. Full range of motion. No adenopathy thyromegaly or neck vein distention. Cardiovascular examination reveals regular rhythm rate. S1-S2 normal. No S3 or S4. No discernible murmur noted. Lungs reveal diminished breath sounds on the right. Chest tube is noted. Scattered rhonchi. No wheezes or crackles. Abdomen soft bowel sounds are heard. No masses or tenderness. Extremities are intact. No cyanosis clubbing or edema. Skin is without rash or lesion. Neurologic examination is brief but nonfocal. - Labs CBC & Chem 7: 01/06/25 05:52 01/06/25 05:52 Labs: Abnormal Lab Results - Last 24 Hours (Table) 01/06/25 01/06/25 Range/Units 05:52 05:52 WBC 10.9 H (3.8-10.6) k/uL MCHC 30.9 L (31.0-37.0) g/dL BUN 23 H (9-20) mg/dL Glucose 114 H (74-99) mg/dL Assessment and Plan Assessment: Postoperative day #4, status post robotically assisted right upper lobectomy and mediastinal lymph node dissection, for a enlarging right upper lobe mass. COPD. Previous history of chronic tobacco dependence. CAD with previous stent placement. History of hyperlipidemia. History of hypertension. Plan: Plan dated January 06, 2025. The patient is seen today in room 354. The patient is doing relatively well. Chest x-ray has been reviewed. There is a small right apical pneumothorax. Chest tubes remain in place. All labs x-rays, and medications are reviewed. The patient continues with deep breathing, coughing, and clearing of secretions. He also continues with hourly use of the incentive spirometer. The patient will continue with GI and DVT prophylaxis. He continues with [facility] hodilators. Additional recommendations and suggestions are forthcoming. Time with Patient: Less than 30
[2025-01-06] MEDS: IBUPROFEN 800 MG TAB PO PRN (16:46)
[2025-01-07 07:36] LABS: HCT 45.5 % (39.0-53.0); HGB 14.4 gm/dL (13.0-17.5); MCH 31.4 pg (25.0-35.0); MCHC 31.5 g/dL (31.0-37.0); MCV 99.7 fL (80.0-100.0); Mean Platelet Volume 8.4; Platelet Count 302 k/uL (150-450); RBC 4.57 m/uL (4.30-5.90); RDW 12.6 % (11.5-15.5); WBC 9.7 k/uL (3.8-10.6)
--- NOTE | 2025-01-07 07:51 | XR ---
EXAMINATION TYPE: XR chest 2V DATE OF EXAM: 01/07/2025 6:22 AM COMPARISON: Multiple radiographs, with the most recent on 01/06/2025 TECHNIQUE: XR chest 2V Frontal and lateral views of the chest. CLINICAL INDICATION:Male, 69 years old with history of Post lobectomy; FINDINGS: Lungs/Pleura: No pleural effusion. Redemonstration of elevation of the right hemidiaphragm. Decreasin g now trace right apical pneumothorax. No focal consolidation. Pulmonary vascularity: Prominence of the central pulmonary vasculature. Heart/mediastinum: Cardiomediastinal silhouette is unremarkable. Atherosclerotic calcifications are seen in the aorta. Musculoskeletal: No acute osseous pathology. Cervical fusion hardware. Other findings: None Lines/Tubes: Stable 2 right-sided chest tubes directed towards the lung apex. IMPRESSION: Post right lobectomy changes with decreasing trace right apical pneumothorax. Stable position of 2 ri ght-sided chest tubes. [facility], , 01/07/2025 7:49 AM
[2025-01-07 08:09] LABS: African American GFR (CKD) >90 (>60 ml/min/1.73 sqM); Anion Gap 8 mmol/L; Blood Urea Nitrogen 24 mg/dL (9-20); Carbon Dioxide 30 mmol/L (22-30); Chloride 100 mmol/L (98-107); Glucose 161 mg/dL (74-99); Non-African American GFR(CKD) >90 (>60 ml/min/1.73 sqM); Potassium 4.4 mmol/L (3.5-5.1); Sodium 138 mmol/L (137-145)
--- NOTE | 2025-01-07 08:42 | P.PN ---
Subjective Progress Note Date: 01/07/25 Principal diagnosis: Right upper lobe enlarging mass. Previous medical history of CAD with previous PCI, hypertension, hyperlipidemia, obstructive sleep apnea without home CPAP us e, previous tobacco dependence, COPD, GERD, osteoarthritis, abdominal aortic aneurysm being followed by Dr. Hoyt POD #5 robotic assisted right upper lobectomy with mediastinal lymph node dissection The patient was seen and examined this morning sitting up in recliner on the cardiac stepdown unit in no acute distress eating breakfast. States pain is controlled with current medication regimen. Remains in sinus rhythm, hemodynamically stable, currently on room air with oxygen saturation in the low to mid 90s. Right pleural chest tube present to waterseal, 200 mL in the last 24 hours, no air leak this am. Labs, chest x-ray reviewed. Patient has been ambulatory without difficulty. No other new concerns. Objective - Vital Signs Vital signs: Vital Signs Temp 98.6 F 01/07/25 04:42 Pulse 65 01/07/25 04:42 Resp 17 01/07/25 04:42 BP 118/75 01/07/25 04:42 Pulse Ox 93 L 01/07/25 04:42 FiO2 Intake & Output 01/06/25 01/07/25 01/07/25 18:59 06:59 18:59 Intake Total 1440 0 240 Output Total 630 100 Balance 810 -100 240 Weight 102.6 kg Intake: Oral 1440 0 240 Output: Chest Tube Drainage 70 100 Chest Tube Right 70 100 Drainage 0 Right 0 Urine 560 Other: Voiding Method Urinal # Voids 1 # Bowel Movements 1 - Exam CONSTITUTIONAL: Appears comfortable, cooperative, no acute distress RESPIRATORY: Lungs sounds diminished bilaterally. Respirations even, nonlabored. Currently on room air with oxygen saturation 93%. Able to achieve 1500 mL on his incentive spirometry. Strong nonproductive cough. CARDIOVASCULAR: S1, S2 present. Regular rate and rhythm, sinus rhythm on telemetry. Palpable peripheral pulses bilaterally. No edema present. No calf pain or tenderness noted. SCDs present. GASTROINTESTINAL: Abdomen soft, nontender, nondistended. Active bowel sounds present 4 quadrants. Tolerating diet. Positive bowel movment 01/06/25 GENITOURINARY: Continues to void clear, yellow urine INTEGUMENTARY: Skin is warm and dry with evidence of good perfusion. Thoracic incision well approximated NEUROLOGIC: Cranial nerves II through XII intact MUSKULOSKELETAL: Able to move all extremities, strength equal bilaterally, gait normal PSYCHIATRIC: Alert and oriented to person place and time, appropriate affect, intact judgment and insight INVASIVE LINES AND TUBES: Right pleural chest tubes present to waterseal, no airleak present this morning, 200 mL serosanguineous drainage in the last 24 hours - Allied health notes Allied health notes reviewed: nursing - Labs CBC & Chem 7: 01/07/25 06:35 01/07/25 06:35 Labs: Abnormal Lab Results - Last 24 Hours (Table) 01/07/25 Range/Units 06:35 BUN 24 H (9-20) mg/dL Glucose 161 H (74-99) mg/dL - Imaging and Cardiology Chest x-ray: report reviewed, image reviewed Assessment and Plan Assessment: Right upper lobe enlarging mass, status post robotic assisted right upper lobectomy with mediastinal lymph node dissection History of CAD with previous PCI Hypertension Hyperlipidemia Obstructive sleep apnea without home CPAP use Previous tobacco dependence COPD GERD Osteoarthritis Abdominal aortic aneurysm being followed by Dr. Hoyt Plan: Chest tube discontinued without incident, will repeat CXR in a few hours Pathology still pending Encourage continued incentive spirometer use Increase activity, ambulate as tolerated Pain control per current medication regimen GI/DVT prophylaxis Home medications If repeat CXR stable likely will discharge to home today More recommendations to follow
[2025-01-07 10:16] VITALS: TEMP 98.1
[2025-01-07 11:31] VITALS: BP 101/68; PULSE 62; RESP 16
--- NOTE | 2025-01-07 11:42 | XR ---
EXAMINATION TYPE: XR chest 2V DATE OF EXAM: 01/07/2025 11:31 AM COMPARISON: Multiple radiographs, with the most recent on 01/07/2025 TECHNIQUE: XR chest 2V Frontal and lateral views of the chest. CLINICAL INDICATION:Male, 69 years old with history of post chest tube removal; FINDINGS: Lungs/Pleura: No pleural effusion. Redemonstration of elevation of the right hemidiaphragm. Stable tr gayle right apical pneumothorax. No focal consolidation. Pulmonary vascularity: Prominence of the central pulmonary vasculature. Heart/mediastinum: Cardiomediastinal silhouette is unremarkable. Atherosclerotic calcifications are seen in the aorta. Musculoskeletal: No acute osseous pathology. Cervical fusion hardware. Other findings: None Lines/Tubes: Interval removal of both right-sided chest tubes. IMPRESSION: Post right lobectomy changes with interval removal of both right-sided chest tubes with stable trace right apical pneumothorax. [facility], , 01/07/2025 11:40 AM
--- NOTE | 2025-01-07 12:20 | P.PN ---
Subjective Progress Note Date: 01/07/25 Principal diagnosis: Right upper lobectomy. This is a pleasant 69-year-old male patient with a known history of coronary artery disease with previous stent placement, hyperlipidemia, hypertension, chronic obstructive pulmonary disease to 70% of predicted. He has a 50-year smoking history however quit over 5 years ago. He had a screening CT scan done in May 2024 that showed a small subcentimeter nodule with some degree of spiculation in the right upper lobe. A PET scan showed very mild uptake and no evidence of metastasis. He had undergone bronchoscopy with biopsies which were noondiagnostic in July 2024. Repeat CAT scan in November of this year revealed increase in the size of the tumor from 9 mm to 1.3 cm with some degree of speculation. The nodules and several centimeters deep in the lung parenchyma and a wedge resection was not recommended. He presented here today for a robotic assisted right upper lobe right upper lobectomy with mediastinal lymph node dissection performed by Dr. Mcgee. He is seen today in consultation in the selective care unit. He is currently sitting up in bed. Awake and alert in no acute distress. Maintaining good O2 saturations in the 90s on 4 L/min per nasal cannula. He is afebrile. Hemodynamically stable. Right sided chest tubes Y'd remain in place to Pleur-evac and wall suction. A leak is present. He is utilizing his incentive spirometer. Postop chest x-ray reveals no pneumothorax post lobectomy. Small amount of increased density at the left diaphragm. Patient was seen today on 01/03/2025, patient is doing great, sitting up in bed, not in any distress, he is on room air, O2 saturation in the low 90s. Right- sided chest tube is noted, on continuous wall suction, had 300 mL of output since his surgery, denies any cough or wheezing denies any shortness of breath. WBC count is 13.4 hemoglobin is 15.6 electrolytes are normal renal profile is normal chest x-ray showed no evidence of pneumothorax, chest tubes in proper position. Minimal left basilar atelectasis Seen today on 01/04/2025, patient is now postoperative day #2, doing great, patient had robotic assisted right upper lobectomy with mediastinal lymph node dissection, right-sided chest tube remains in place, on wall suction, continues to have small intermittent airleak. Clinically the patient is asymptomatic, pain is under control, no shortness of breath, compliant with his incentive spirometry. WBC count today is 11 hemoglobin 15.2 electrolytes are normal and renal profile is normal Seen today on , patient is now postoperative day #3, he had an assisted right upper lobectomy and mediastinal lymph node dissection. Patient is doing well, chest x-ray was reviewed and he continues to have right pleural chest tube in place, is on waterseal. Intermittent air leak was noted. Patient has been ambulating without difficulty. Labs were reviewed WBC count is 9.7 hemoglobin 14.8 electrolytes are normal renal profile is normal Progress note dated January 06, 2025. This is a 69-year-old male postop day #4, status post robotically assisted right upper lobectomy with mediastinal lymph node dissection. Currently, the patient is seen in room 354. He is on room air. He is doing well, without complaints. Current laboratory data includes a white count of 10.9, hemoglobin 14.5, hematocrit 46.9, and platelet count 292,000. Sodium 139, potassium 4.3, chlorides 102, CO2 29, BUN 23, and creatinine 0.75. Glucose is 114. Calcium is 9.3. Chest x-ray reveals a small right apical pneumothorax, and chest tubes still in place. Progress note dated January 07, 2025. 69-year-old male postoperative day #5, status post robotically assisted right upper lobectomy with mediastinal lymph node dissection. The patient is seen today in room 354. The right sided chest tube has been removed by cardiothoracic surgery. Current laboratory data includes a white count 9.7, hemoglobin 14.4, hematocrit 45.5, and platelet count 302,000. Sodium 138, potassium 4.4, chlorides 100, CO2 30, BUN 24, and creatinine 0.77. Calcium is 9. The chest x-ray done after removal of the right sided chest tube, reveals a trace right apical pneumothorax. Objective - Vital Signs Vital signs: Vital Signs Temp 98.1 F 01/07/25 08:00 Pulse 62 01/07/25 11:29 Resp 16 01/07/25 11:29 BP 101/68 01/07/25 11:29 Pulse Ox 95 01/07/25 11:29 FiO2 Intake & Output 01/06/25 01/07/25 01/07/25 18:59 06:59 18:59 Intake Total 1440 0 480 Output Total 630 100 200 Balance 810 -100 280 Weight 102.6 kg Intake: Oral 1440 0 480 Output: Chest Tube Drainage 70 100 Chest Tube Right 70 100 Drainage 0 Right 0 Urine 560 200 Other: Voiding Method Urinal Urinal # Voids 1 1 # Bowel Movements 1 - Exam No acute distress, oriented 3. HEENT examination is grossly unremarkable. Mucous membranes are moist. No oral lesions. Neck supple. Full range of motion. No adenopathy thyromegaly or neck vein distention. Cardiovascular examination reveals regular rhythm rate. S1-S2 normal. No S3 or S4. No discernible murmur noted. Lungs reveal diminished breath sounds on the right. Chest tube has been removed. Scattered rhonchi. No wheezes or crackles. Abdomen soft bowel sounds are heard. No masses or tenderness. Extremities are intact. No cyanosis clubbing or edema. Skin is without rash or lesion. Neurologic examination is brief but nonfocal. - Labs CBC & Chem 7: 01/07/25 06:35 01/07/25 06:35 Labs: Abnormal Lab Results - Last 24 Hours (Table) 01/07/25 Range/Units 06:35 BUN 24 H (9-20) mg/dL Glucose 161 H (74-99) mg/dL Assessment and Plan Assessment: Postoperative day #5, status post robotically assisted right upper lobectomy and mediastinal lymph node dissection, for a enlarging right upper lobe mass. COPD. Previous history of chronic tobacco dependence. CAD with previous stent placement. History of hyperlipidemia. History of hypertension. Plan: Plan dated January 06, 2025. The patient is seen today in room 354. The patient is doing relatively well. Chest x-ray has been reviewed. There is a small right apical pneumothorax. Chest tubes remain in place. All labs x-rays, and medications are reviewed. The patient continues with deep breathing, coughing, and clearing of secretions. He also continues with hourly use of the incentive spirometer. The patient will continue with GI and DVT prophylaxis. He continues with updrafts, bronchod ilators. Additional recommendations and suggestions are forthcoming. Plan dated January 07, 2025. The patient is seen today in room 354. The chest tube was removed today. The patient may be discharged home later today. There was a small right apical pneumothorax, after chest tube removal. The patient is asymptomatic. He is on room air. I advised him to take home the incentive spirometer, continue to use it. Labs, x-rays, and all medications are reviewed. Prognosis is thought to be good. We will continue to follow. Dictation was produced using [employer] software. Please excuse any grammatical, word or spelling errors. Time with Patient: Less than 30
--- NOTE | 2025-01-07 14:15 | P.DS ---
Providers Date of admission: 01/02/25 05:37 Expected date of discharge: 01/07/25 Attending physician: David Mcgee MD Consults: 01/02/25 11:48 Consult Physician Routine Consulting Provider: Caterina Alexander Consult Reason/Comments: post lobectomy Do you want consulting provider notified?: Yes [facility]: FINAL DIAGNOSIS: Right upper lobe enlarging mass History of CAD with previous PCI Hypertension Hyperlipidemia Obstructive sleep apnea without home CPAP use Previous tobacco dependence COPD GERD Osteoarthritis Abdominal aortic aneurysm being followed by Dr. Hoyt PRINCIPAL PROCEDURE: Robotic assisted right upper lobectomy with mediastinal lymph node dissection HISTORY OF PRESENT ILLNESS: This is a 69-year-old gentleman who follows outpatient with Dr. Avina for internal medicine, Dr. Vincent from cardiology, and Dr. Coyne for pulmonology. He had a longstanding smoking history although quit about 5 years ago. He recently had a screening CT scan in May 2024 which demonstrated small subcentimeter nodule with some degree of spiculation in the right upper lobe. Subsequently he underwent PET scan which showed very mild uptake with no evidence of metastasis. Following this he underwent a bronchoscopy with biopsy, brushings and washings, all of which were nondiagnostic. That was performed in July 2024. In November 2024 he had a repeat CT scan which showed significant increase in the size of the tumor from 8 mm to 1.4 cm in diameter, again with some degree of spiculation. Unfortunately the mass was several centimeters deep in the lung parenchyma, not near fissure, and would be challenging to wedge out. The patient was referred to Dr. Hernandez from cardiothoracic surgery. Due to the location of the mass and the significant increase in size he was recommended to undergo right upper lobectomy. The usual perioperative course was discussed in detail with the patient, all risks and benefits were explained, all questions were answered, and consent was obtained to proceed with surgery. The patient was scheduled for surgery at the earliest possible date after obtaining cardiac clearance. HOSPITAL COURSE: The patient was brought to the hospital on 01/02/25, taken to the preoperative area, prepared in the usual fashion, and subsequently taken to the operating room where Dr. Mcgee performed robotic assisted right upper lobectomy. Upon completion of surgery the patient was extubated and taken to the recovery room for further hemodynamic monitoring. He was eventually admitted to 3 S. cardiac stepdown unit for continued monitoring. He continued to do well although he did have an intermittent airleak which ceased by postop day 5. Chest tube was discontinued without incident, follow-up chest x-ray was stable. His oxygen was titrated down, he was tolerating oral diet, his pain was controlled, and he was ready to be discharged to home with home care on postoperative day #5. He received written and verbal instruction regarding his medications, activity restrictions, signs and symptoms requiring physician notification, and follow-up appointments. Patient Condition at Discharge: Stable Plan - Discharge Summary Discharge Rx Participant: Yes New Discharge Prescriptions: New Ibuprofen [Motrin] 800 mg PO QID PRN tab PRN Reason: Pain Sennosides-Docusate Sodium [Senokot-S] 1 each PO BID PRN tab PRN Reason: Constipation Acetaminophen Tab [Tylenol] 650 mg PO Q4HR PRN tab PRN Reason: Mild To Moderate Pain (1 - 6) Continue Aspirin 81 mg PO DAILY Budesonide-Formot 160-4.5 Mcg [Symbicort 160-4.5 Mcg Inhaler] 2 puff INHALATION BID Nitroglycerin Sl Tabs [Nitrostat] 0.4 mg SUBLINGUAL Q5M PRN #25 tab PRN Reason: Chest Pain lisinopriL [Zestril] 20 mg PO QAM Xhmgnis-Jnnq-Awxl [id number] [Excedrin] 1 tab PO DIRECTED Albuterol Sulfate [Albuterol Sulfate Hfa] 2 puff PO Q6H PRN PRN Reason: sob Discharge Medication List Aspirin 81 mg PO DAILY 11/26/21 [History] Albuterol Sulfate [Albuterol Sulfate Hfa] 2 puff PO Q6H PRN 08/16/22 [History] Budesonide-Formot 160-4.5 Mcg [Symbicort 160-4.5 Mcg Inhaler] 2 puff INHALATION BID 08/16/22 [History] Nitroglycerin Sl Tabs [Nitrostat] 0.4 mg SUBLINGUAL Q5M PRN #25 tab 06/15/23 [Rx] Iwrgopg-Iyka-Auwr [id number] [Excedrin] 1 tab PO DIRECTED 06/30/23 [History] lisinopriL [Zestril] 20 mg PO QAM 06/30/23 [History] Acetaminophen Tab [Tylenol] 650 mg PO Q4HR PRN tab 01/07/25 [Rx] Ibuprofen [Motrin] 800 mg PO QID PRN tab 01/07/25 [Rx] Sennosides-Docusate Sodium [Senokot-S] 1 each PO BID PRN tab 01/07/25 [Rx] Follow up Appointment(s)/Referral(s): Singh Hernandez MD [STAFF PHYSICIAN] - 01/16/25 2:00 pm Gini Avina MD [Primary Care Provider] - As Needed Micki Coyne MD [STAFF PHYSICIAN] - 01/27/25 10:45 am Activity/Diet/Wound Care/Special Instructions: DISCHARGE INSTRUCTIONS: 1. No driving for 2 weeks, or until physician gives their ok. 2. No lifting, pushing, or pulling more than 10 pounds for 2 weeks. The physician will advise of any restriction changes. 3. Continue pain control per as needed orders. Alternate acetaminophen (Tylenol) and ibuprofen (Motrin/Advil) for pain. 4. Continue with incentive spirometry and splinting until otherwise directed by the physician. 5. Leave chest tube dressing for 48 hours. After that, remove all dressings an d shower daily. 6. Routine incision care. No powders, lotions, ointments on incisions. 7. Please call surgeon/OPERATIONS PLANT ATTENDANT for temp greater than 101 F or purulent drainage from incisions. 8. Smoking cessation counseling and program information provided. Quitting smoking is the most important step you can take to improve your health. For additional information and assistance to quit smoking, please call the [place] tobacco quit line (7-349-ONDQ-NOW/ ) or online: [email or web address]://[email or web address].gov/[email or web address]-[email or web address]-to-qu it-tobacco Discharge Disposition: HOME SELF-CARE
--- NOTE | 2025-01-10 05:59 | CDI ---
Documentation Clarification Form Date: 01/10/2025 From: Melani Sherwood Admit Date: 01/02/2025 05:37:00 AM Patient Name: Aristides Velásquez Visit Number: [id number] Discharge Date: 01/07/2025 02:23:00 PM ATTENTION: The Clinical Documentation Specialists (CDI) and [facility] Coding Staff appreciate your assistance in clarifying documentation. Please respond to the clarification below the line at the bottom and electronically sign. The CDI & [facility] Coding staff will review the response and follow-up if needed. Please note: Queries are made part of the Legal Health Record. If you have any questions, please contact the author of this message via ITS. 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 Hilar lymphnodenegative formetastasis Coding guidelines do not allow coding professionals to code based on pathology results; therefore, clarification is requested. History/risk factors: COPD, HTN, HLD, RHETT, GERD, AAA, CAD Clinical Indicators: Right upper lobe enlargingmass. Treatment: Right upper lobectomy with mediastinal lymph node dissection. Please clarify if you agree with the pathology report diagnosis of Invasive moderately differentiated acinar pulmonary adenocarcinoma of right upper lobe of lung: [ X] Yes [ ] No [ ] Other (please specify) [ ] Unable to determine MTDD
== END 2025-01-07 14:23 | disposition home or self-care (01) | DRG 163 ==
LOC: 2ORMAIN 05:37 → 3SCARD 13:42
PROVIDERS: ADMIT Thoracic Surgery (Cardiothoracic Vascular Surgery); ATTEND Thoracic Surgery (Cardiothoracic Vascular Surgery)
PROC: 8E0W4CZ Robotic Assisted Procedure of Trunk Region, Percutaneous Endoscopic Approach (ICD-10-PCS; principal; 2025-01-02 07:30)
PROC: 07B74ZX Excision of Thorax Lymphatic, Percutaneous Endoscopic Approach, Diagnostic (ICD-10-PCS; principal; 2025-01-02 07:30)
PROC: 0BTC4ZZ Resection of Right Upper Lung Lobe, Percutaneous Endoscopic Approach (ICD-10-PCS; principal; 2025-01-02 07:30)
DX: C34.11 Malignant neoplasm of upper lobe, right bronchus or lung (principal); J96.01 Acute respiratory failure with hypoxia; J44.9 Chronic obstructive pulmonary disease, unspecified; I10 Essential (primary) hypertension; I71.40 Abdominal aortic aneurysm, without rupture, unspecified; J93.82 Other air leak; E78.5 Hyperlipidemia, unspecified; I25.10 Atherosclerotic heart disease of native coronary artery without angina pectoris; G47.33 Obstructive sleep apnea (adult) (pediatric); K21.9 Gastro-esophageal reflux disease without esophagitis; Z79.82 Long term (current) use of aspirin; Z79.51 Long term (current) use of inhaled steroids; Z79.899 Other long term (current) drug therapy; Z87.891 Personal history of nicotine dependence; Z95.5 Presence of coronary angioplasty implant and graft
CPT/HCPCS: 64999; 71045; 71046; 80048; 85025; 85027; 88305; 88309; 88341; 88342; 94640; 94760

== ENCOUNTER → 2025-06-03 | Outpatient (CLI) | payer MEDICARE ==
[2025-06-03 10:13] LABS: HCT 45.3 % (39.6-50.0); HGB 14.7 g/dL (13.0-17.0); MCH 31.0 pg (27.0-32.0); MCHC 32.5 g/dL (32.0-37.0); MCV 95.6 FL (80.0-97.0); NRBC Per 100 WBC 0 X 10*3/uL (0.00-0.01); Platelet Count 263 X 10*3/uL (140-440); RBC 4.74 X 10*6/uL (4.40-5.60); RDW 13.0 % (11.5-14.5); WBC 9.44 X 10*3/uL (4.50-10.00)
[2025-06-03 10:25] LABS: NT-Pro-B-Type Natriuretic Pept 158 pg/mL (0-125)
[2025-06-03 11:12] LABS: BUN/Creat Ratio 23.14 Ratio (12.00-20.00); Blood Urea Nitrogen 16.2 mg/dL (9.0-27.0); Cholesterol 135.00 mg/dL (0.00-200.00); Glucose 104 mg/dL (70-110); HDL Cholesterol 33.10 mg/dL (40.00-60.00); Triglycerides 152.00 mg/dL (0.00-149.00); VLDL Calculation 30.40 mg/dL (5.00-40.00)
[2025-06-03 11:13] LABS: ALT 46 U/L (10-49); AST 28 U/L (14-35); Albumin 4.1 g/dL (3.8-4.9); Albumin/Globulin Ratio 1.32 Ratio (1.60-3.17); Alkaline Phosphatase 62 U/L (41-126); Anion Gap 12.20 mmol/L (4.00-12.00); Calcium 9.4 mg/dL (8.7-10.3); Carbon Dioxide 21.8 mmol/L (21.6-31.8); Chloride 105 mmol/L (96-109); Globulin 3.1 g/dL (1.6-3.3); LDL Cholesterol,Calculated 71.5 mg/dL (0.0-131.0); Potassium 4.8 mmol/L (3.5-5.5); Sodium 139 mmol/L (135-145); Total Protein 7.2 g/dL (6.2-8.2)
== END | disposition home or self-care (01) ==
LOC: LABWHC1 06:57
PROVIDERS: ATTEND Student in an Organized Health Care Education/Training Program
DX: I50.9 Heart failure, unspecified (principal); E78.5 Hyperlipidemia, unspecified; E11.9 Type 2 diabetes mellitus without complications; D72.9 Disorder of white blood cells, unspecified; R79.89 Other specified abnormal findings of blood chemistry
CPT/HCPCS: 36415; 80053; 80061; 83036; 83880; 85027